=== PATIENT | female | born 1960 | race Caucasian/White ===

== ENCOUNTER 2017-05-18 11:36 | Observation (INO) | payer BC, SELFPAY ==
[2017-05-18] VITALS (11 sets, daily range): BP systolic 135–166; BP diastolic 68–90; PULSE 61–90; RESP 10–18; TEMP 36.4–37.1; O2SAT 96–100; BMI 42.7; BMI 42.4
--- NOTE | 2017-05-18 11:51 | NURSING ---
NO OLD EKGS
--- NOTE | 2017-05-18 11:52 | RAD_ITS ---
STUDY: X-RAY CHEST REASON FOR EXAM: Female, 56 years old. Chest pain TECHNIQUE: Single frontal view of the chest. COMPARISON: None. FINDINGS: The lungs are clear and expanded. There is no demonstrated pleural abnormality. Normal size heart. Normal mediastinum and alicja. Normal visualized pulmonary arteries. Normal visualized aortic arch and descending thoracic aorta. Normal visualized thoracic spine. Remote deformity of the left humerus. There is no demonstrated abnormality of the visualized soft tissue structures of the upper abdomen. RAD/Chest 1 View (Portable) IMPRESSION: No acute pulmonary findings. Electronically Signed: Chevy Segundo MD at 12:16 EDT Tel , Service support ,
--- NOTE | 2017-05-18 11:52 | EKG12_ITS ---
Test Reason : CP Blood Pressure : / mmHG Vent. Rate : 076 BPM Atrial Rate : 076 BPM P-R Int : 168 ms QRS Dur : 090 ms QT Int : 374 ms P-R-T Axes : 046 040 048 degrees QTc Int : 420 ms Normal sinus rhythm Normal ECG Confirmed by YOGESH NASCIMENTO MD ([id number]), city editor RADHA LANDERS ([id number] on 05/21/2017 1:16:46 PM Referred By: CARMEN
[2017-05-18] MEDS: Aspirin 81 MG TAB.CHEW 324 MG PO (11:55)
--- NOTE | 2017-05-18 11:56 | ED.DCSUM_ITS ---
- ER Visit Summary Date of Service: 05/18/17 Chief Complaint: Shortness of breath, upper back pain, leg swelling History of Present Illness: The patient is a 56 F with no significant medical history except for prior right lower extremity DVT in 2007 presents to the emergency department multiple complaints. Patient states over the past 2 weeks , she has had some gradually worsening shortness of breath. She states that it seems to be worse when she exerts herself. She normally sleeps with 2 pillows, but does not notice it worse when she lays flat. She denies any fevers. She has had some nausea. Over the past few days, the pain is gotten worse mostly in her upper back. She also has some pain when she takes a deep breath. She has had scant cough with no sputum. She denies any fevers or chills. The patient does have a history of smoking, but has quit about a year ago. She denies any weight loss. She denies any night sweats. She has no history of coronary vascular disease. Physical Examination: Vital signs reviewed General: Well-nourished, well-developed Head: Normocephalic, atraumatic Eyes: Pupils equal and reactive, extraocular muscles intact Neck, supple, no lymphadenopathy Heart: Regular rate and rhythm Respiratory: No distress, diminished in the bases Abdomen: Soft, nontender, nondistended, no peritoneal signs Back: Nontender Extremities: Nontender, 2+ symmetric lower extremity edema, no cords Skin: Normal color no rash Neuro: Alert and oriented, no focal or lateralizing deficits Test Results: [] Emergency Department Course and Treatment: Patient has been having intermittent chest tightness, upper back pain, and dyspnea. She also has asymmetric leg swelling. Her initial EKG shows no evidence of acute ischemic change. Chest x- ray is also unremarkable. Labs including troponin and BNP are unremarkable. With her history of prior DVT, I did obtain a CTA of her chest through her abdomen with her asymmetric leg swelling. This is negative. There is no pulmonary embolus. There is no aortic dissection. Ultrasound of the lower extremity shows no acute DVT. My concern is that this may be a cardiac equivalent given the patient's age and risk factor. She has tightness in her upper back, dyspnea, and intermittent chest tightness. I do feel that she would benefit from observation with cardiac rule out. Patient was discussed with the hospitalist. Treatment Plan: [] Disposition: Admission Impression: 1. Exertional dyspnea 2. Chest pain This note was generated with [employer] dictation software. It may contain incorrect words, spelling, and punctuation that were not noted in review of the chart prior to signing ED Disposition - Plan for ED Patient: Chief Complaint: Shortness of Breath Referrals: Chana Mckeon MD [Primary Care Provider] -
--- NOTE | 2017-05-18 11:59 | CT_ITS ---
STUDY: CTA CHEST REASON FOR EXAM: Female, 56 years old. Back pain and right leg swelling RADIATION DOSAGE (If Supplied By Facility): CTDIvol = ( 16.76 ) mGy, DLP = ( 1081.65 ) mGycm TECHNIQUE: The examination was performed with the intravenous administration of 100 ml of Isovue 370 contrast material. Post-processing of the angiographic images was performed, with multiplanar reformation and 3D reconstruction. Individualized dose optimization techniques were used for this CT. COMPARISON: None. FINDINGS: Normal enhancement of the main pulmonary artery and right and left pulmonary arteries. Normal enhancement of the bilateral peripheral pulmonary arteries. There is no demonstrated pulmonary embolism. Mild aortic plaque. There is no demonstrated aortic dissection. Normal heart and pericardium. Normal mediastinum. Normal hilar regions. Normal visualized trachea and bronchi. The lungs are well expanded. Normal pulmonary parenchyma. Normal pleura. Normal chest wall structures. There are degenerative changes of thoracic spine. Normal visualized upper abdomen. CT/CTA Chest W/WO Contrast IMPRESSION: Normal CTA chest examination, without a demonstrated pulmonary embolism or arterial dissection. Electronically Signed: Chevy Segundo MD at 13:07 EDT Tel , Service support ,
[2017-05-18 12:04] LABS: Absolute Lymphocyte Count 2.06 X10^3/ul (0.83-4.51); Absolute Neutrophil Count 2.9 X10^3/uL (2.0-7.7); Basophil# 0.01 X10^3/uL; Basophil% 0.2 % (0-1); Eosinophil# 0.13 X10^3/uL; Eosinophils% 2.4 % (0-5); Hematocrit 40.8 % (37-47); Hemoglobin 13.5 g/dl (12.0-15.0); Lymphocyte # 2.06 X10^3/ul (4.0); Lymphocyte % 37.3 % (19-41); Mean Corp Hgb Conc 33.1 g/gl (32-36); Mean Corpuscular Hgb 29.3 pg (27.0-32.0); Mean Corpuscular Volume 88.5 fL (81-99); Monocyte# 0.41 X10^3/uL; Monocyte% 7.4 % (0-10); Neutrophil # 2.89 X10^3/uL (2.7-7.7); Neutrophil % 52.3 % (47-70); POSITIVE COUNT NO; POSITIVE DIFFERENTIAL NO; POSITIVE MORPHOLOGY NO; Platelet Count 165 K/mm3 (150-450); RBC Distribution Width CV 13.8 % (11.6-14.6); RBC Distribution Width SD 44.3 fl (35.1-43.9); Red Blood Count 4.61 M/mm3 (4.2-5.4); White Blood Count 5.5 K/mm3 (4.4-11.0)
[2017-05-18 12:08] LABS: Prothrombin Time (Protime)PT. 12.7 SECONDS (11.7-14.9)
[2017-05-18 12:18] LABS: Anion Gap 7 (5-15); BUN 13 mg/dL (7-18); BUN/Creat Ratio 17.6 RATIO (10-20); Calcium,Total 8.4 mg/dL (8.5-10.1); Chloride 108 mmol/L (98-107); Creatinine, Serum 0.74 mg/dL (0.55-1.02); EST Glomerular Filtration Rate 87 mL/min (>60); Est Glom Filt Rate - Afr Amer 105 mL/min (>60); Estimated Creatinine Clearance 75.05 ml/min; Glucose 83 mg/dL (74-106); Potassium 3.8 mmol/L (3.5-5.1); Sodium Level 141 mmol/L (136-145)
--- NOTE | 2017-05-18 12:26 | CT_ITS ---
CT ANGIOGRAM OF THE ABDOMEN WITH CONTRAST HISTORY: Back pain and leg swelling COMPARISON: Technique: Axial CT angiogram images of the abdomen were performed after IV contrast administration followed by sagittal and coronal reconstructions. 3-D postprocessing was performed. FINDINGS: No abdominal aortic aneurysm or flow limiting aortic stenosis. No aortic dissection is seen. Mild eccentric calcified aortic plaque. The visible portions of the iliac arteries are patent. The abdominal aortic branch vessels are patent. Degenerative lumbar changes. Hepatomegaly, with liver length of 20 cm. Borderline splenomegaly with spleen length 13 cm. Kidneys, adrenal glands, pancreas, and gallbladder are unremarkable. Small umbilical fat hernia. Appendix is normal. Colonic diverticulosis. IVC and retroperitoneum are intact. CT/CTA Abdomen W/WO Contrast IMPRESSION: No CTA evidence of acute arterial pathology in the abdomen or pelvis. Electronically Signed: Chevy Segundo MD at 13:05 EDT Tel , Service support ,
[2017-05-18 12:36] LABS: BNP,B-Type NATRIURETIC PEPTIDE 76.1 pg/mL (0-100)
--- NOTE | 2017-05-18 13:09 | VDLE_ITS ---
Reason For Study: LEG SWELLING RIGHT GSV is normal. CFV is compressible, spontaneous, phasic, competent and demonstrates normal augmentation. Pt could not tolerate FV compressions. Normal color flow and doppler signal and competent with augmentation. POP V is compressible, spontaneous, phasic, competent and demonstrates normal augmentation. T/P Trunk is compressible. PTV is compressible. Procedure Exam performed portable in ED. A preliminary report was called and/or faxed to Dr. Yao. Interpretation Summary Deep veins of the right lower extremity are patent. There is no evidence of right lower extremity deep vein thrombosis. Valvular competence appears intact within the proximal deep venous system on the right . The right greater saphenous vein appears patent and compressible segmentally. Ordering Physician: Silvio Yao Referring Physician: Chana Mckeon M.D. Performed By: Chayo Ordonez RVT
--- NOTE | 2017-05-18 13:57 | NURSING ---
PCU OBS DOROTEO WOODARD
--- NOTE | 2017-05-18 14:06 | PCM.HP.STD ---
History of Present Illness Date of Admission: 05/18/17 Chief Complaint: Shortness of breath, chest pain, upper back pain and leg swelling. The patient is a 56 year old F with no significant past medical history presented to the emergency room because of multiple complaints. I tried to find what was the most significant symptom that patient came for today and she mentioned it is the chest pain. She mentioned that she has been having this chest pain for the last week, intermittent pain, central in location, squeezing pain, 6 out of 10 in severity, associated with shortness of breath, sometimes radiates to her both shoulders and upper back and without relieving or aggravating factors. Also, she complains of multiple body pains and aches. She complained of right leg swelling. She complains of bilateral hand numbness that has been going on for some time. In the emergency room, her blood pressure was slightly elevated, other vital signs were stable. Her routine blood work was unremarkable. Her lipase and BMP was normal. Chest x-ray showed no acute infiltrate, consultation or effusion. CTA chest showed no evidence of PE or dissection, no pneumonia. CT abdomen and pelvis showed no evidence of acute arterial pathology. She is being admitted for atypical chest pain for evaluation. 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 Paternal History Items: No pertinent history - She is adopted. Review of Systems Constitutional: Denies: Anorexia, Chills, Fever, Weakness Eyes: Denies: Blurred vision, Double vision, Drainage, Redness HEENT: Denies: Difficulty Hearing, Ear Pain, Eye Pain, Nasal Congestion, Sore Throat Cardiovascular: Reports: Chest Pain. Denies: Edema, Heaviness, Light Headedness, Orthopnea, Palpitations, Paroxysmal Noc. Dyspnea, Syncope Respiratory: Reports: Shortness of Breath. Denies: Cough, Pleuritic Pain, Sputum production, Wheezing Gastrointestinal: Reports: Nausea. Denies: Abdominal Pain, Constipation, Diarrhea, Vomiting Genitourinary: Denies: Dysuria, Frequency, Hematuria Musculoskeletal: Reports: Back Pain. Denies: Arm Pain, Foot Pain Skin: Denies: Dryness, Rash Neurological: Reports: Numbness. Denies: Balance problems, Double vision, Change in Speech, Slurred speech, Confusion, Focal weakness, Headaches, Incoordination Psychiatric: Denies: Anxiety, Depression Endocrine: Denies: Change in Body Habitus, Polydipsia VTE Information - Inpt Only VTE Present on Admission: No VTE Mechan Device Prophylaxis: None VTE Pharm Prophylaxis ordered?: No - Physical Exam General: Alert, Oriented x3, Cooperative, No apparent distress HEENT: Atraumatic, PERRLA, EOMI Oral: Moist Mucosa, No Gingival or Mucosal Lesions/ Ulcerations Neck: Supple, No JVD, Negative Carotid Bruits, Trachea Midline, Thyroid Normal Size and Texture Cardiovascular: Regular rate, Regular Rhythm, Normal S1, Normal S2, No murmurs, PMI Normal Abdomen: Bowel Sounds Present, Soft, Non Tender, Non-Distended, No Hepato-splenomegaly Extremities: No clubbing, No cyanosis, No edema Skin: No rashes, No breakdown Lymphatic: No Cervical, Supraclavicular, or Inguinal Adenopathy Neurological: Cranial nerves II-XII grossly intact, Motor Exam 5/5 strength throughout Psych/Mental Status: Normal Affect, Appropriate, Alert and oriented to time, place, person, mood and affect Vital Signs Temp Pulse Resp BP Pulse Ox 98.7 F 65 11 L 166/86 H 100 05/18/17 11:38 05/18/17 12:56 05/18/17 12:56 05/18/17 12:56 05/18/17 12:56 Oxygen Flow Rate (L/min) 2 Oxygen Delivery Method Room Air Weight: 249 lb Body Mass Index (BMI) 42.7 Laboratory Tests Past 24 Hrs 05/18/17 05/18/17 05/18/17 11:55 11:55 11:55 WBC 5.5 RBC 4.61 Hgb 13.5 Hct 40.8 MCV 88.5 MCH 29.3 MCHC 33.1 RDW 13.8 RDW Differential 44.3 H Plt Count 165 MPV 11.0 Immature Gran % (Auto) 0.400 Neut % (Auto) 52.3 Lymph % (Auto) 37.3 [place] % (Auto) 7.4 Eos % (Auto) 2.4 Baso % (Auto) 0.2 Absolute Neuts (auto) 2.9 Absolute Lymphs (auto) 2.06 Total Counted Not Reportable PT 12.7 INR 1.0 Sodium 141 Potassium 3.8 Chloride 108 H Carbon Dioxide 26.0 Anion Gap 7 BUN 13 Creatinine 0.74 Estim Creat Clear Calc 75.05 Est GFR (MDRD) Af Amer 105 Est GFR (MDRD) Non-Af 87 BUN/Creatinine Ratio 17.6 Glucose 83 Calcium 8.4 L Troponin I < 0.02 B-Natriuretic Peptide 05/18/17 11:55 WBC RBC Hgb Hct MCV MCH MCHC RDW RDW Differential Plt Count MPV Immature Gran % (Auto) Neut % (Auto) Lymph % (Auto) [place] % (Auto) Eos % (Auto) Baso % (Auto) Absolute Neuts (auto) Absolute Lymphs (auto) Total Counted PT INR Sodium Potassium Chloride Carbon Dioxide Anion Gap BUN Creatinine Estim Creat Clear Calc Est GFR (MDRD) Af Amer Est GFR (MDRD) Non-Af BUN/Creatinine Ratio Glucose Calcium Troponin I B-Natriuretic Peptide 76.1 Clinical Impression(s) from Imaging Studies Chest X-Ray 05/18/17 11:52 IMPRESSION: No acute pulmonary findings. Electronically Signed: Chevy Segundo MD at 12:16 EDT Tel , Service support , Chest CTA 05/18/17 11:59 IMPRESSION: Normal CTA chest examination, without a demonstrated pulmonary embolism or arterial dissection. Electronically Signed: Chevy Segundo MD at 13:07 EDT Tel , Service support , Abdomen CTA 05/18/17 12:26 IMPRESSION: No CTA evidence of acute arterial pathology in the abdomen or pelvis. Electronically Signed: Chevy Segundo MD at 13:05 EDT Tel , Service support , Assessment/Plan This is a 56 years old female patient presented to the medicine because of multiple complaints including atypical chest pain, shortness of breath, upper back pain and leg swelling that she is being admitted for atypical chest pain for evaluation. #1 atypical chest pain: Risk factors are smoking and obesity. No family history of premature CAD, patient is adopted. She has no personal history of diabetes, hypertension, hyperlipidemia. EKG was unremarkable, no acute ischemic changes. Chest x-ray and CTA chest was unremarkable. Plan: Admit to PCU for observation, cardiac monitoring, serial cardiac enzymes, repeat EKG tomorrow morning, start baby aspirin, fasting lipid profile, nuclear stress test tomorrow morning if cardiac enzymes are negative. #2 leg swelling: Both legs are swollen, nonpitting edema because of obesity. No clinical evidence of DVT. #3 elevated blood pressure: Blood pressure was slightly elevated in the ER, maximum was 166/86. She has no history of hypertension. Plan for close monitoring, may need to start on antihypertensive medication before discharge #4 history of DVT: Remote history, status post IVC. No clinical evidence of DVT of both legs at this time. #5 DVT prophylaxis: Subcu Lovenox. This note was generated with [employer] dictation software. It may contain incorrect words, spelling, and punctuation that were not noted in checking the note before signing. Code Visit OBSV E&M: 16699 Initial observation care L3
--- NOTE | 2017-05-18 14:14 | HP.PCM_ITS ---
History of Present Illness Date of Admission: 05/18/17 Chief Complaint: Shortness of breath, chest pain, upper back pain and leg swelling. The patient is a 56 year old F with no significant past medical history presented to the emergency room because of multiple complaints. I tried to find what was the most significant symptom that patient came for today and she mentioned it is the chest pain. She mentioned that she has been having this chest pain for the last week, intermittent pain, central in location, squeezing pain, 6 out of 10 in severity, associated with shortness of breath, sometimes radiates to her both shoulders and upper back and without relieving or aggravating factors. Also, she complains of multiple body pains and aches. She complained of right leg swelling. She complains of bilateral hand numbness that has been going on for some time. In the emergency room, her blood pressure was slightly elevated, other vital signs were stable. Her routine blood work was unremarkable. Her lipase and BMP was normal. Chest x-ray showed no acute infiltrate, consultation or effusion. CTA chest showed no evidence of PE or dissection, no pneumonia. CT abdomen and pelvis showed no evidence of acute arterial pathology. She is being admitted for atypical chest pain for evaluation. 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 Paternal History Items: No pertinent history - She is adopted. Review of Systems Constitutional: Denies: Anorexia, Chills, Fever, Weakness Eyes: Denies: Blurred vision, Double vision, Drainage, Redness HEENT: Denies: Difficulty Hearing, Ear Pain, Eye Pain, Nasal Congestion, Sore Throat Cardiovascular: Reports: Chest Pain. Denies: Edema, Heaviness, Light Headedness , Orthopnea, Palpitations, Paroxysmal Noc. Dyspnea, Syncope Respiratory: Reports: Shortness of Breath. Denies: Cough, Pleuritic Pain, Sputum production, Wheezing Gastrointestinal: Reports: Nausea. Denies: Abdominal Pain, Constipation, Diarrhea, Vomiting Genitourinary: Denies: Dysuria, Frequency, Hematuria Musculoskeletal: Reports: Back Pain. Denies: Arm Pain, Foot Pain Skin: Denies: Dryness, Rash Neurological: Reports: Numbness. Denies: Balance problems, Double vision, Change in Speech, Slurred speech, Confusion, Focal weakness, Headaches, Incoordination Psychiatric: Denies: Anxiety, Depression Endocrine: Denies: Change in Body Habitus, Polydipsia VTE Information - Inpt Only VTE Present on Admission: No VTE Mechan Device Prophylaxis: None VTE Pharm Prophylaxis ordered?: No - Physical Exam General: Alert, Oriented x3, Cooperative, No apparent distress HEENT: Atraumatic, PERRLA, EOMI Oral: Moist Mucosa, No Gingival or Mucosal Lesions/ Ulcerations Neck: Supple, No JVD, Negative Carotid Bruits, Trachea Midline, Thyroid Normal Size and Texture Cardiovascular: Regular rate, Regular Rhythm, Normal S1, Normal S2, No murmurs, PMI Normal Abdomen: Bowel Sounds Present, Soft, Non Tender, Non-Distended, No Hepato- splenomegaly Extremities: No clubbing, No cyanosis, No edema Skin: No rashes, No breakdown Lymphatic: No Cervical, Supraclavicular, or Inguinal Adenopathy Neurological: Cranial nerves II-XII grossly intact, Motor Exam 5/5 strength throughout Psych/Mental Status: Normal Affect, Appropriate, Alert and oriented to time, place, person, mood and affect Vital Signs Temp Pulse Resp BP Pulse Ox 98.7 F 65 11 L 166/86 H 100 05/18/17 11:38 05/18/17 12:56 05/18/17 12:56 05/18/17 12:56 05/18/17 12:56 Oxygen Flow Rate (L/min) 2 Oxygen Delivery Method Room Air Weight: 249 lb Body Mass Index (BMI) 42.7 Laboratory Tests Past 24 Hrs 05/18/17 05/18/17 05/18/17 11:55 11:55 11:55 WBC 5.5 RBC 4.61 Hgb 13.5 Hct 40.8 MCV 88.5 MCH 29.3 MCHC 33.1 RDW 13.8 RDW Differential 44.3 H Plt Count 165 MPV 11.0 Immature Gran % (Auto) 0.400 Neut % (Auto) 52.3 Lymph % (Auto) 37.3 [place] % (Auto) 7.4 Eos % (Auto) 2.4 Baso % (Auto) 0.2 Absolute Neuts (auto) 2.9 Absolute Lymphs (auto) 2.06 Total Counted Not Reportable PT 12.7 INR 1.0 Sodium 141 Potassium 3.8 Chloride 108 H Carbon Dioxide 26.0 Anion Gap 7 BUN 13 Creatinine 0.74 Estim Creat Clear Calc 75.05 Est GFR (MDRD) Af Amer 105 Est GFR (MDRD) Non-Af 87 BUN/Creatinine Ratio 17.6 Glucose 83 Calcium 8.4 L Troponin I < 0.02 B-Natriuretic Peptide 05/18/17 11:55 WBC RBC Hgb Hct MCV MCH MCHC RDW RDW Differential Plt Count MPV Immature Gran % (Auto) Neut % (Auto) Lymph % (Auto) [place] % (Auto) Eos % (Auto) Baso % (Auto) Absolute Neuts (auto) Absolute Lymphs (auto) Total Counted PT INR Sodium Potassium Chloride Carbon Dioxide Anion Gap BUN Creatinine Estim Creat Clear Calc Est GFR (MDRD) Af Amer Est GFR (MDRD) Non-Af BUN/Creatinine Ratio Glucose Calcium Troponin I B-Natriuretic Peptide 76.1 Clinical Impression(s) from Imaging Studies Chest X-Ray 05/18/17 11:52 IMPRESSION: No acute pulmonary findings. Electronically Signed: Chevy Segundo MD at 12:16 EDT Tel , Service support , Chest CTA 05/18/17 11:59 IMPRESSION: Normal CTA chest examination, without a demonstrated pulmonary embolism or arterial dissection. Electronically Signed: Chevy Segundo MD at 13:07 EDT Tel , Service support , Abdomen CTA 05/18/17 12:26 IMPRESSION: No CTA evidence of acute arterial pathology in the abdomen or pelvis. Electronically Signed: Chevy Segundo MD at 13:05 EDT Tel , Service support , Assessment/Plan This is a 56 years old female patient presented to the medicine because of multiple complaints including atypical chest pain, shortness of breath, upper back pain and leg swelling that she is being admitted for atypical chest pain for evaluation. #1 atypical chest pain: Risk factors are smoking and obesity. No family history of premature CAD, patient is adopted. She has no personal history of diabetes, hypertension, hyperlipidemia. EKG was unremarkable, no acute ischemic changes. Chest x-ray and CTA chest was unremarkable. Plan: Admit to PCU for observation, cardiac monitoring, serial cardiac enzymes, repeat EKG tomorrow morning, start baby aspirin, fasting lipid profile, nuclear stress test tomorrow morning if cardiac enzymes are negative. #2 leg swelling: Both legs are swollen, nonpitting edema because of obesity. No clinical evidence of DVT. #3 elevated blood pressure: Blood pressure was slightly elevated in the ER, maximum was 166/86. She has no history of hypertension. Plan for close monitoring, may need to start on antihypertensive medication before discharge #4 history of DVT: Remote history, status post IVC. No clinical evidence of DVT of both legs at this time. #5 DVT prophylaxis: Subcu Lovenox. This note was generated with [employer] dictation software. It may contain incorrect words, spelling, and punctuation that were not noted in checking the note before signing. Code Visit OBSV E&M: 81802 Initial observation care L3
--- NOTE | 2017-05-18 16:58 | EKG12_ITS ---
Test Reason : CP Blood Pressure : / mmHG Vent. Rate : 073 BPM Atrial Rate : 073 BPM P-R Int : 176 ms QRS Dur : 090 ms QT Int : 386 ms P-R-T Axes : 040 038 048 degrees QTc Int : 425 ms Normal sinus rhythm Normal ECG When compared with ECG of 18-MAY-2017 11:47, MANUAL COMPARISON REQUIRED, DATA IS UNCONFIRMED Confirmed by AZAM CAMPBELL, YOGESH ([id number]), editor & co founder RADHA LANDERS ([id number]) on 05/21/2017 1:46:37 PM Referred By: VANCE Confirmed By:YOGESH NASCIMENTO MD
[2017-05-18] MEDS: 0.9% NaCl Peripheral Flush Adult/Peds IV (22:08)
[2017-05-18] MEDS: Acetaminophen 325 MG Tablet 650 MG PO (22:11)
[2017-05-19] VITALS (7 sets, daily range): BP systolic 137–152; BP diastolic 71–84; PULSE 57–76; RESP 16–18; TEMP 36.4–36.6; O2SAT 96–99
[2017-05-19 02:37] LABS: Absolute Lymphocyte Count 2.06 X10^3/ul (0.83-4.51); Absolute Neutrophil Count 2.1 X10^3/uL (2.0-7.7); Basophil# 0.02 X10^3/uL; Basophil% 0.4 % (0-1); Eosinophil# 0.09 X10^3/uL; Hematocrit 37.7 % (37-47); Hemoglobin 12.5 g/dl (12.0-15.0); Lymphocyte # 2.06 X10^3/ul (4.0); Lymphocyte % 44.8 % (19-41); Mean Corp Hgb Conc 33.2 g/gl (32-36); Mean Corpuscular Hgb 29.8 pg (27.0-32.0); Mean Platelet Vol. 10.8 fl (6.2-12.0); Monocyte# 0.32 X10^3/uL; Neutrophil % 45.6 % (47-70); POSITIVE COUNT NO; POSITIVE DIFFERENTIAL NO; POSITIVE MORPHOLOGY NO; Platelet Count 134 K/mm3 (150-450); RBC Distribution Width CV 13.7 % (11.6-14.6); RBC Distribution Width SD 44.6 fl (35.1-43.9); Red Blood Count 4.19 M/mm3 (4.2-5.4); White Blood Count 4.6 K/mm3 (4.4-11.0)
[2017-05-19 03:15] LABS: Anion Gap 7 (5-15); BUN 14 mg/dL (7-18); BUN/Creat Ratio 18.3 RATIO (10-20); Calcium,Total 8.2 mg/dL (8.5-10.1); Chloride 108 mmol/L (98-107); Cholesterol 185 mg/dL (200); Creatinine, Serum 0.76 mg/dL (0.55-1.02); EST Glomerular Filtration Rate 84 mL/min (>60); Est Glom Filt Rate - Afr Amer 101 mL/min (>60); Estimated Creatinine Clearance 73.07 ml/min; Glucose 91 mg/dL (74-106); High Density Lipoprotein 73 mg/dL; Sodium Level 143 mmol/L (136-145); Triglycerides 86 mg/dL; Very Low Density Lipoprotein 17 mg/dL (5-40)
[2017-05-19 04:56] LABS: Prothrombin Time (Protime)PT. 13.2 SECONDS (11.7-14.9)
[2017-05-19 04:57] LABS: Partial Thromboplast Time 24.9 Seconds (24.1-36.2)
[2017-05-19] MEDS: Aspirin 81 MG TAB.CHEW PO (05:44)
--- NOTE | 2017-05-19 05:55 | EKG12_ITS ---
Test Reason : AM EKG Blood Pressure : / mmHG Vent. Rate : 060 BPM Atrial Rate : 060 BPM P-R Int : 180 ms QRS Dur : 090 ms QT Int : 406 ms P-R-T Axes : 065 066 064 degrees QTc Int : 406 ms Normal sinus rhythm Normal ECG When compared with ECG of 18-MAY-2017 17:02, MANUAL COMPARISON REQUIRED, DATA IS UNCONFIRMED Confirmed by AZAM CAMPBELL, YOGESH ([id number]), assignment editor RADHA LANDERS ([id number]) on 05/21/2017 1:37:11 PM Referred By: DR WOODARD Confirmed By:YOGESH NASCIMENTO MD
--- NOTE | 2017-05-19 09:12 | STRESSREP_ITS ---
Stress Test Report Pharmacologic myocardial perfusion stress test. 56-year-old lady with a history of chest pain. Stress protocol: Resting EKG demonstrates sinus rhythm with a rate of 63 bpm. Normal intervals and noted resting blood pressures 142/90 mmHg. 0.4 mg of regadenoson was infused per usual protocol followed by rapid intravenous saline flush injection. Continuous EKG monitoring was performed. At rest there were no ST or T-wave changes noted suggest abnormal flow reserve at peak infusion no ST or T-wave changes were noted suggest abnormal flow reserve. The maximum heart rate attained was 99 bpm which was 59% maximum predicted heart rate the maximum workload attained was 1 metabolic equivalent. The resting blood pressure is 142 /90 mmHg final blood pressure 138/82 mmHg. Myocardial perfusion protocol: 14.7 mCi of technetium 99m sestamibi was injected at rest. 0.4 mg regadenoson was infused per usual protocol. Peak infusion 44.4 mCi of technetium 99m sestamibi was injected. Stress images were obtained stress and rest images were reconstructed and compared in the short axis vertical long and horizontal long axis. Gated images were also obtained. Perfusion SPECT analysis: Review of the stress images demonstrate normal uptake of tracer noted in all areas of the myocardium on the stress images the resting images similarly demonstrate normal uptake of tracer noted in all areas of the myocardium. No areas of reversibility are noted suggest ischemia. Gated SPECT analysis: The gated ejection fraction is noted to be 60%. Conclusion: Normal pharmacologic myocardial perfusion stress test. Preserved ejection fraction.
[2017-05-19] MEDS: Acetaminophen 325 MG Tablet 650 MG PO (10:25)
[2017-05-19] MEDS: Lisinopril 5 MG Tablet PO (11:14)
[2017-05-19] MEDS: Ondansetron 4 MG/2 ML Vial IV (11:18)
[2017-05-19] MEDS: 0.9% NaCl Peripheral Flush Adult/Peds IV (11:19)
--- NOTE | 2017-05-19 11:35 | PCM.DC ---
You will use the following diet at home:: Cardiac - <2g sodium per day Your food should be the consistency of: Regular Your liquids should be the consistency of: Regular/Thin Discharge Activity: Return to Normal Activity Allergies/Adverse Reactions: Allergies diphenhydramine [From Benadryl] Adverse Reaction (Verified 05/18/17 14:06) irritable IRRITABLE Medications to take at Discharge Lisinopril [Zestril] 5 mg PO DAILY #30 tab 05/19/17 The following prescriptions were given: Lisinopril [Zestril] 5 mg PO DAILY #30 tab Primary Care Physician: Chana Mckeon MD [Primary Care Provider] - Please follow up with your Primary Care Physician in: 1-2 weeks Proposed Discharge Date: 05/19/17
--- NOTE | 2017-05-19 15:45 | PCM.DC.SUM ---
<Gonzalo Slater - Last Filed: 05/19/17 15:45> Discharge Date and Diagnosis Date of Admission: 05/18/17 Date of Discharge: 05/19/17 - Primary Discharge Diagnosis Chest pain - musculoskeletal HTN Obesity Former smoker Remote hx DVT Hospital Course and Treatment Imaging Results: RAD/Chest 1 View (Portable) IMPRESSION: No acute pulmonary findings. CT/CTA Chest W/WO Contrast IMPRESSION: Normal CTA chest examination, without a demonstrated pulmonary embolism or arterial dissection. CT/CTA Abdomen W/WO Contrast IMPRESSION: No CTA evidence of acute arterial pathology in the abdomen or pelvis. Duplex venous US RLE: Interpretation Summary Deep veins of the right lower extremity are patent. There is no evidence of right lower extremity deep vein thrombosis. Valvular competence appears intact within the proximal deep venous system on the right . The right greater saphenous vein appears patent and compressible segmentally. Stres test: Conclusion: Normal pharmacologic myocardial perfusion stress test. Preserved ejection fraction. Operations: None Procedures: Stress test Summary of Care Provided: Physical exam on day of discharge: General: Resting comfortably NAD Psych: A/Ox3 normal affect HEENT: PEARRLA AT NC Neck: Supple NT CV: RRR no m/t/r/g/h Resp: CTA Abd: [id number] Soft NT no guarding or rigidity, obesity Ext: DP2+= no edema, varicose veins, nonpitting puffy edema bilateral lower extremities. Skin: W/D normal turgor Lymph/Heme: No active bleeding or adenopathy Neuro: CN2-12 intact Hospital course: The patient is a 56 year old F with on no medications, with a hx of prior smoker, prior DVT, obesity who presented to the ER complaining of 6 out of 10 squeezing chest pain associated with shortness of breath radiating to her shoulders and upper back with no relieving or aggravating factors. She also complained of right lower extremity swelling, bilateral hand numbness. In the ER she had negative troponin, negative EKG, CTA of the abdomen and chest which were negative, and an ultrasound of the right lower extremity which was negative for DVTs. She was admitted to the hospital for chest pain workup. She had negative troponin ?3, no events on telemetry, and underwent a stress test the following day with no acute events. Her blood pressure was poorly controlled throughout the stay so she was started on lisinopril. LDL was 95, total cholesterol 185. She remained in stable condition and had no further chest pain. He was felt that her chest pain was musculoskeletal in origin and she was advised to follow-up with her PCP for further care. She is discharged home in stable condition This patient was seen by Gonzalo Slater PA-C under the supervision of Doctor Hi. [] Discharge Diet: Low fat/ Low Cholesterol, 2000 mg Sodium Diet Discharge Activity: Return to Normal Activity Home Medications: Medications to take at Discharge Lisinopril [Zestril] 5 mg PO DAILY #30 tab 05/19/17 Following Prescrptions Were Given to Patient: Lisinopril [Zestril] 5 mg PO DAILY #30 tab Primary Care Physician: Chana Mckeon MD [Primary Care Provider] - Please follow up with your Primary Care Physician in: 1-2 weeks Disposition: Home Minutes spent on discharge:: 35 Patient Condition:: Stable Meaningful Use Info Meaningful Use Diagnoses (Choose all that apply): None applicable <Allen Do - Last Filed: 05/19/17 19:05> Hospital Course and Treatment Summary of Care Provided: This patient was seen in conjunction with Gonzalo GILLILAND. I have independently interviewed and examined the patient and reviewed pertinent history, examination findings, laboratory and plan of management. I have reviewed the note and agree with the documented findings with the few additional points. In brief, patient is admitted for chest pain. Stress test did not show acute stress-induced ischemia. Patient is discharged home. I have discussed my assessment with Gonzalo GILLILAND and orders have been reviewed. [] Code Visit OBSV E&M: 96181 Observation care discharge
--- NOTE | 2017-05-19 15:52 | DS.PCM_ITS ---
<Gonzalo Slater - Last Filed: 05/19/17 15:45> Discharge Date and Diagnosis Date of Admission: 05/18/17 Date of Discharge: 05/19/17 - Primary Discharge Diagnosis Chest pain - musculoskeletal HTN Obesity Former smoker Remote hx DVT Hospital Course and Treatment Imaging Results: RAD/Chest 1 View (Portable) IMPRESSION: No acute pulmonary findings. CT/CTA Chest W/WO Contrast IMPRESSION: Normal CTA chest examination, without a demonstrated pulmonary embolism or arterial dissection. CT/CTA Abdomen W/WO Contrast IMPRESSION: No CTA evidence of acute arterial pathology in the abdomen or pelvis. Duplex venous US RLE: Interpretation Summary Deep veins of the right lower extremity are patent. There is no evidence of right lower extremity deep vein thrombosis. Valvular competence appears intact within the proximal deep venous system on the right . The right greater saphenous vein appears patent and compressible segmentally. Stres test: Conclusion: Normal pharmacologic myocardial perfusion stress test. Preserved ejection fraction. Operations: None Procedures: Stress test Summary of Care Provided: Physical exam on day of discharge: General: Resting comfortably NAD Psych: A/Ox3 normal affect HEENT: PEARRLA AT NC Neck: Supple NT CV: RRR no m/t/r/g/h Resp: CTA Abd: [id number] Soft NT no guarding or rigidity, obesity Ext: DP2+= no edema, varicose veins, nonpitting puffy edema bilateral lower extremities. Skin: W/D normal turgor Lymph/Heme: No active bleeding or adenopathy Neuro: CN2-12 intact Hospital course: The patient is a 56 year old F with on no medications, with a hx of prior smoker , prior DVT, obesity who presented to the ER complaining of 6 out of 10 squeezing chest pain associated with shortness of breath radiating to her shoulders and upper back with no relieving or aggravating factors. She also complained of right lower extremity swelling, bilateral hand numbness. In the ER she had negative troponin, negative EKG, CTA of the abdomen and chest which were negative, and an ultrasound of the right lower extremity which was negative for DVTs. She was admitted to the hospital for chest pain workup. She had negative troponin ?3, no events on telemetry, and underwent a stress test the following day with no acute events. Her blood pressure was poorly controlled throughout the stay so she was started on lisinopril. LDL was 95, total cholesterol 185. She remained in stable condition and had no further chest pain. He was felt that her chest pain was musculoskeletal in origin and she was advised to follow-up with her PCP for further care. She is discharged home in stable condition This patient was seen by Gonzalo Slater PA-C under the supervision of Doctor Hi. [] Discharge Diet: Low fat/ Low Cholesterol, 2000 mg Sodium Diet Discharge Activity: Return to Normal Activity Home Medications: Medications to take at Discharge Lisinopril [Zestril] 5 mg PO DAILY #30 tab 05/19/17 Following Prescrptions Were Given to Patient: Lisinopril [Zestril] 5 mg PO DAILY #30 tab Primary Care Physician: Chana Mckeon MD [Primary Care Provider] - Please follow up with your Primary Care Physician in: 1-2 weeks Disposition: Home Minutes spent on discharge:: 35 Patient Condition:: Stable Meaningful Use Info Meaningful Use Diagnoses (Choose all that apply): None applicable <Aleln Do - Last Filed: 05/19/17 19:05> Hospital Course and Treatment Summary of Care Provided: This patient was seen in conjunction with Gonzalo GILLILAND. I have independently interviewed and examined the patient and reviewed pertinent history, examination findings, laboratory and plan of management. I have reviewed the note and agree with the documented findings with the few additional points. In brief, patient is admitted for chest pain. Stress test did not show acute stress-induced ischemia. Patient is discharged home. I have discussed my assessment with Gonzalo GILLILAND and orders have been reviewed. [] Code Visit OBSV E&M: 45457 Observation care discharge
== END 2017-05-19 11:35 | disposition home or self-care (01) ==
LOC: ED 12:05 → PCU 14:02
PROVIDERS: Admitting Provider Hospitalist; Emergency Provider Emergency Medicine; Family Provider Family Medicine; PCP Family Medicine; Visit Provider Internal Medicine
DX: R07.89 Other chest pain (principal); I10 Essential (primary) hypertension; Z87.891 Personal history of nicotine dependence; Z86.718 Personal history of other venous thrombosis and embolism; E66.9 Obesity, unspecified; Z68.41 Body mass index [BMI] 40.0-44.9, adult; Z71.3 Dietary counseling and surveillance; M79.89 Other specified soft tissue disorders; R20.0 Anesthesia of skin; R06.02 Shortness of breath
CPT/HCPCS: 36415; 71045; 71275; 74175; 78452; 80048; 80061; 83880; 84484; 85025; 85610; 85730; 93005; 93017; 93971; 96374; 97802; 99218; 99284; A9500; Q9967; A4216; G0378; J2405; J2785

== ENCOUNTER → 2018-12-05 | Outpatient (CLI) | payer BC, SELFPAY ==
[2017-05-18 14:28] VITALS: BMI 42.4
--- NOTE | 2018-12-05 12:15 | RAD_ITS ---
STUDY: X-RAY - LEFT KNEE REASON FOR EXAM: Female, 57 years old. Osteoarthritis TECHNIQUE: 3 view(s) of the knee. COMPARISON: None. FINDINGS: There are severe degenerative changes in the medial weightbearing compartment with joint space loss, subchondral sclerosis and articular marginal osteophyte formation. There is mild degenerative change in the lateral, moderate degenerative change in the patellofemoral compartments. Soft tissues unremarkable without joint effusions. RAD/Knee 4 or More Views IMPRESSION: Severe medial compartment degenerative joint change. Electronically Signed: Beni Perrin, at 19:01 EDT Tel , Service support ,
--- NOTE | 2018-12-05 12:16 | RAD_ITS ---
STUDY: X-RAY - RIGHT KNEE REASON FOR EXAM: Female, 57 years old. Osteoarthritis TECHNIQUE: 3 view(s) of the knee. COMPARISON: None. FINDINGS: The knee is intact and located. There are severe degenerative changes in the medial weightbearing compartment with loss of joint space and subchondral sclerosis. There is mild tricompartmental articular marginal osteophyte formation. Soft tissues are unremarkable without joint effusion. RAD/Knee 4 or More Views IMPRESSION: Severe degenerative change of the medial weightbearing compartment. Electronically Signed: Beni Perrin, at 18:30 EDT Tel , Service support ,
== END | disposition home or self-care (01) ==
LOC: MTRAD 12:12
PROVIDERS: Family Provider Family Medicine; PCP Family Medicine; Referring Provider Family Medicine; Visit Provider Family Medicine
DX: M17.0 Bilateral primary osteoarthritis of knee (principal)
CPT/HCPCS: 73564

== ENCOUNTER 2019-09-04 13:00 | Outpatient (RCR) | payer BC, SELFPAY | END 2019-09-05 23:59 | LOC: NS 13:00 | PROVIDERS: PCP Family Medicine; Visit Provider Specialist | DX: Z71.3 Dietary counseling and surveillance (principal); E66.8 Other obesity; Z68.41 Body mass index [BMI] 40.0-44.9, adult | CPT/HCPCS: 97802; 97803 ==

== ENCOUNTER 2019-09-11 09:00 | Outpatient (RCR) | payer BC, MEDICAID, SELFPAY ==
--- NOTE | 2019-08-16 08:53 | HP.PTEVAL ---
Patient's Visit Information MANINDER SEVERINO is a 58 year old F referred to Physical Therapy by Dr. Morgan Cadena MD with a diagnosis of Bilateral Knee OA. Date of Evaluation: 08/16/19 Physical Therapist: Alisa Terrell DPT - Visit Plan Frequency: 1x/Week Duration: 6 Weeks Plan: Focus on HEP- patient plans to come to PT 1x a week then do HEP due to 20 visit limit with possible TKR. - Subjective Patient reports that she has had knee problems for years- continually getting worse. Saw Dr. Cadena who reports that she needs to get her BMI down to be able to do TKR. Works for [employer]- MD took her off work- Surinder took x-rays and the left knee bone is starting to deteriorate. The left is worse that the right. Pain at its worst is a 20/10 in the left knee and 12/10 in the right knee. Agg: standing, walking, anything up on it. Was taking Ibuprofen when she was working and it took the edge off. She does not want to do narcotics- was given a Tramadol prescription that she takes PRN. Best: 10/10 Eases: laying down- depending on the day. Sleep: side sleeper- wakes her up at night. Does have a lot of swelling her legs right>left- 2007 had blood clot and was in the hospital for 4 days and has struggled with swelling since then. Pain is located along the front of the knees and radiates to the ankle and into the thigh. Does have N/T in bilateral LE which is new in the last few months. Does not have back issues. Her balance is bad due to pain and compensation but she has not had any falls or knee buckling. She uses a rail when doing stairs and she does one step at a time-non recip. Getting up from sitting is painful and the pain continues whiles he is moving. Will need to have both knees replaced as she loses weight. Left will be first. Currently off work- September 18 - PMHx/Meds: see chart. - Objective Posture: FH, RS, increased kyphosis- can correct but does not maintain. Gait: antalgic- decreased stance bilateral with poor heel/toe pattern. HR/TR: able but reports pain. SLS: weight shift but is unable to SLS. ROM: Left: 10-55 degrees Right: 10-70 degrees. Strength: Ankle: 4/5, Knee: 4-/5 with pain, Hip: 3+/5 Core: poor. Flex: HS: severe, Gastroc: severe - Goals Goal 1:: Patient will be I with HEP and progression Goal Time Frame: 4-6 Weeks Goal 2:: Patient will ambulate >300 feet with a normalized gait pattern Goal Time Frame: 4-6 Weeks Goal 3:: Patient will asc/desc 8 stairs recip with 1 HR Goal Time Frame: 4-6 Weeks Goal 4:: Patient will report no more than 8/10 pain Goal Time Frame: 4-6 Weeks - Rehabilitation Potential Physical Therapy Diagnosis: Patient presents with hypomobility- she has decreased ROM, strength, flex and muscular endurance leading to abnormal gait and decreased ability to perform work/ADL's Rehabilitation Potential: Fair - Anticipated Interventions Patient/Client Instruction: Educate patient on: Benefits of Fitness Program Therapeutic Exercise to Include: Strength training, Endurance training, Balance training, Coordination, Agility training, Body mechanics, Postural training, Flexibilty training, Gait and locomotor training, Neuromotor development, In an aquatic setting, Passive ROM, Active ROM, Dynamic Lumbar Stabilization For the Purpose of:: To improve muscle performance and motor function Thank you for the opportunity to evaluate your patient. For Medicare and Medicare HMO plans, please review the plan of care and approve it. It will need to be FAXED BACK to us at [phone] for Medicare purposes. For Medicare only, by signing this I certify the plan of care. Please let me know if there are questions or concerns regarding this plan of care. Physician Signature: Date:
--- NOTE | 2019-09-11 09:18 | HP.PTDCSUM_ITS ---
It has been my pleasure to treat MANINDER SEVERINO referred by Dr. Morgan Cadena MD, with the diagnosis of Bilateral Knee OA for a total of 5 visit(s). Discharge Date: Please see the following information for a summary of their discharge status. Subjective: Patient reports that she is better than when she started- she can only do so much exercises until they start to cramp- trying to find the happy medium. Plans to continue to do her pool therapy indep with her gym membership. RLE Pain Intensity (Out of 10): 10 LLE Pain Intensity (Out of 10): 10 Lumbar Spine Pain Intensity (Out of 10): 0 % Improvement: 60 Objective/Function: Posture: FH, RS, increased kyphosis- can correct but does not maintain. Gait: less antalgic- decreased stance bilateral with poor heel/toe pattern. Betty has improved HR/TR: able without pain. SLS: weight shift but is unable to SLS for longer than 2 seconds before using UE for assist. ROM: Left: 10-55 degrees Right: 10-70 degrees. Strength: Ankle: 4+/5, Knee: 4/5 with pain, Hip: 4-/5 Core: poor. Flex: HS: severe, Gastroc: severe Goal 1:: Patient will be I with HEP and progression Goal 2:: Patient will ambulate >300 feet with a normalized gait pattern Goal 3:: Patient will asc/desc 8 stairs recip with 1 HR Goal 4:: Patient will report no more than 8/10 pain Plan: Discharge to [facility] in aquatic therapy. If there are questions or concerns regarding this patient's physical therapy, please feel free to call me at [phone]. Thank you for the referral of this patient. Sincerely, Alisa Terrell DPT
== END 2019-09-11 19:00 | disposition home or self-care (01) ==
LOC: PT 09:00
PROVIDERS: PCP Family Medicine; Referring Provider Specialist; Visit Provider Specialist
DX: M17.0 Bilateral primary osteoarthritis of knee (principal)
CPT/HCPCS: 97110; 97113; 97161; 97164

== ENCOUNTER 2019-09-26 10:13 | Outpatient (RCR) | payer BC, SELFPAY ==
[2017-05-18 14:28] VITALS: BMI 42.4
== END 2019-10-06 23:59 ==
LOC: NS 10:13
PROVIDERS: PCP Family Medicine; Visit Provider Specialist
DX: Z71.3 Dietary counseling and surveillance (principal); E66.8 Other obesity; Z68.41 Body mass index [BMI] 40.0-44.9, adult
CPT/HCPCS: 97802; 97803

== ENCOUNTER 2019-10-17 10:59 | Outpatient (RCR) | payer BC, MEDICAID, SELFPAY ==
[2017-05-18 14:28] VITALS: BMI 42.4
== END 2019-11-06 23:59 ==
LOC: NS 10:59
PROVIDERS: PCP Family Medicine; Visit Provider Specialist
DX: Z71.3 Dietary counseling and surveillance (principal); E66.8 Other obesity; Z68.41 Body mass index [BMI] 40.0-44.9, adult
CPT/HCPCS: 97803

== ENCOUNTER 2019-12-05 09:00 | Outpatient (RCR) | payer BC, SELFPAY ==
[2017-05-18 14:28] VITALS: BMI 42.4
== END 2019-12-05 23:59 | disposition home or self-care (01) ==
LOC: NS 09:00
PROVIDERS: PCP Family Medicine; Visit Provider Specialist
DX: Z71.3 Dietary counseling and surveillance (principal); E66.8 Other obesity; Z68.41 Body mass index [BMI] 40.0-44.9, adult
CPT/HCPCS: 97803

== ENCOUNTER → 2020-05-10 10:24 | Outpatient (CLI) | payer BC, MEDICAID, SELFPAY ==
--- NOTE | 2020-05-10 10:29 | VDLE_ITS ---
Reason For Study: Cellulitis/Pain RLE RIGHT GSV is normal. CFV is compressible, spontaneous, phasic, competent and demonstrates normal augmentation. FV is compressible, spontaneous, phasic, competent and demonstrates normal augmentation. POP V is compressible, spontaneous, phasic, competent and demonstrates normal augmentation. T/P Trunk is compressible. PTV is compressible. RT PerV is compressible. Procedure This is a venous duplex using B-mode, color flow and spectral Doppler. Exam performed in department. Technically difficult to visualize calf veins. A preliminary report was called and/or faxed to [facility]. Interpretation Summary Deep veins of the right lower extremity are patent and compressible segmentally. There is no evidence of right lower extremity deep vein thrombosis. Valvular competence appears intact within the proximal deep venous system on the right . The right great saphenous vein appears patent and compressible segmentally. Ordering Physician: Tim Ordonez Referring Physician: Chana Mckeon M.D. Performed By: Mirna Morel RVT
== END ==
PROVIDERS: PCP Family Medicine; Referring Provider Physician Assistant Surgical; Visit Provider Physician Assistant Surgical
DX: M79.661 Pain in right lower leg (principal); L03.115 Cellulitis of right lower limb
CPT/HCPCS: 93971

== ENCOUNTER → 2020-05-10 16:36 | Outpatient (CLI) | payer BC, MEDICAID, SELFPAY ==
[2017-05-18 14:28] VITALS: BMI 42.4
[2020-05-10 17:53] LABS: Absolute Lymphocyte Count 2.15 X10^3/uL (0.83-4.51); Absolute Neutrophil Count 3.8 X10^3/uL (2.0-7.7); Basophil# 0.02 X10^3/uL; Basophil% 0.3 % (0-1); Eosinophil# 0.05 X10^3/uL; Eosinophils% 0.8 % (0-5); Hematocrit 40.3 % (37-47); Hemoglobin 12.4 g/dL (12.0-15.0); Lymphocyte # 2.15 X10^3/ul (4.0); Lymphocyte % 33.6 % (19-41); Mean Corp Hgb Conc 30.8 g/dL (32-36); Mean Corpuscular Hgb 26.2 pg (27.0-32.0); Mean Corpuscular Volume 85.2 fL (81-99); Mean Platelet Vol. 10.7 fl (6.2-12.0); Monocyte# 0.36 X10^3/uL; Monocyte% 5.6 % (0-10); NRBC Flagged by Analyzer 0 % (0-5); Neutrophil # 3.81 X10^3/uL (2.7-7.7); Neutrophil % 59.5 % (47-70); Platelet Count 215 K/mm3 (150-450); RBC Distribution Width CV 14.9 % (11.6-14.6); RBC Distribution Width SD 46.6 fl (35.1-43.9); Red Blood Count 4.73 M/mm3 (4.2-5.4); White Blood Count 6.4 K/mm3 (4.4-11.0)
[2020-05-10 18:53] LABS: Thyroid Stim Hormone (TSH) 2.26 uIU/mL (0.358-3.74)
== END ==
PROVIDERS: PCP Family Medicine; Referring Provider Family Medicine; Visit Provider Family Medicine
DX: R60.0 Localized edema (principal)
CPT/HCPCS: 36415; 84443; 85025

== ENCOUNTER 2020-05-31 11:48 | Emergency (ER) | payer BC, MEDICAID, SELFPAY ==
[2020-05-31 11:49] VITALS: BP 154/109; PULSE 83; RESP 18; TEMP 36.4; O2SAT 99; BMI 44.9
--- NOTE | 2020-05-31 12:13 | EKG12_ITS ---
Test Reason : Blood Pressure : / mmHG Vent. Rate : 069 BPM Atrial Rate : 069 BPM P-R Int : 180 ms QRS Dur : 092 ms QT Int : 416 ms P-R-T Axes : 047 043 050 degrees QTc Int : 445 ms Normal sinus rhythm Normal ECG Confirmed by AZAM CAMPBELL, YOGESH ([id number]), offline editor EDA GOLDMAN ([id number]) on 06/03/2020 1:45:43 PM Referred By: PIETRO Confirmed By:YOGESH NASCIMENTO MD
[2020-05-31] MEDS: 0.9% Normal Saline 1,000 ML 1000 ML IV (13:03)
[2020-05-31 13:10] LABS: Absolute Lymphocyte Count 1.46 X10^3/uL (0.83-4.51); Absolute Neutrophil Count 7.8 X10^3/uL (2.0-7.7); Basophil# 0.01 X10^3/uL; Basophil% 0.1 % (0-1); Eosinophil# 0.03 X10^3/uL; Eosinophils% 0.3 % (0-5); Hematocrit 39.7 % (37-47); Lymphocyte # 1.46 X10^3/ul (4.0); Lymphocyte % 14.6 % (19-41); Mean Corp Hgb Conc 32.7 g/dL (32-36); Mean Corpuscular Hgb 27.7 pg (27.0-32.0); Mean Corpuscular Volume 84.6 fL (81-99); Mean Platelet Vol. 10.5 fl (6.2-12.0); Monocyte# 0.58 X10^3/uL; Monocyte% 5.8 % (0-10); NRBC Flagged by Analyzer 0 % (0-5); Neutrophil # 7.84 X10^3/uL (2.7-7.7); Neutrophil % 78.6 % (47-70); Platelet Count 168 K/mm3 (150-450); RBC Distribution Width CV 15.2 % (11.6-14.6); RBC Distribution Width SD 46.6 fl (35.1-43.9); Red Blood Count 4.69 M/mm3 (4.2-5.4)
[2020-05-31 13:25] LABS: Anion Gap 6 (5-15); BUN 21 mg/dL (7-18); BUN/Creat Ratio 23.5 RATIO (10-20); Calcium,Total 8.9 mg/dL (8.5-10.1); Chloride 105 mmol/L (98-107); Creatinine, Serum 0.89 mg/dL (0.55-1.02); EST Glomerular Filtration Rate 69 mL/min (>60); Est Glom Filt Rate - Afr Amer 84 mL/min (>60); Estimated Creatinine Clearance 62.76 ml/min; Glucose 96 mg/dL (74-106); Sodium Level 140 mmol/L (136-145)
[2020-05-31 13:36] VITALS: BP 141/81; BP 152/85; BP 152/96; PULSE 67; PULSE 72; PULSE 80
--- NOTE | 2020-05-31 13:38 | ED.VISSUMM ---
- ER Visit Summary Date of Service: 05/31/20 Chief Complaint: Near syncope History of Present Illness: The patient is a [address] Mckeon. She reports that she has a remote history of a left knee replacement. She was to go to the dentist this morning and took 2 g of amoxicillin on an empty stomach. States that approximately 30 minutes later she became nauseated and vomited 4-5 times. No blood in his emesis. She reports that she was lightheaded. States that she went in the bathroom to have diarrhea and when she stood up she was shaky lightheaded, weak. While she was standing at the sink her vision abimael out she did not fall. Patient denies any chest pain or palpitations with these things. She reports that she has had 2 episodes of diarrhea. No blood in her stools or black tarry stools. Physical Examination: Vitals: Stable. Afebrile. General: Well-nourished and well-developed. Head: Normocephalic atraumatic. Neck: Supple, no lymphadenopathy. No JVD. Nontender. Cardiovascular: Regular rate and rhythm. No murmurs. Respiratory: No respiratory distress. Clear to auscultation bilaterally. Abdominal: Soft, nontender, nondistended, normal bowel sounds. No guarding, rebound, or peritoneal signs. Back: Nontender. Extremities: Nontender, no edema. Skin: Normal color, no rash. Neurologic: Alert and oriented ?3. Cranial nerves II through XII are intact. Normal strength and sensation. Psych: Normal affect. Test Results: EKG is sinus at 69. Normal intervals. No evidence of HOCM or Brugada syndrome. CBC shows segmented for 79 lymphocytes 15. Chem-7 shows a BUN 21. Troponin is negative. Emergency Department Course and Treatment: Patient was given a liter normal saline. She refused pain and nausea medications. She is resting comfortably. Treatment Plan: Patient will be discharged with instructions to not take amoxicillin on an empty stomach in the future. Push fluids. Follow-up with her primary care physician 1 to 2 days if not improving. Return to the emergency department for any worsening symptoms. Disposition: To home in improved and stable condition. Impression: 1. Adverse reaction to amoxicillin. 2. Vasovagal near syncope. This note was generated with [employer] software. It may contain incorrect words, spelling, and punctuation that were not noted in review of the chart prior to signing ED Disposition - Plan for ED Patient: Instructions: ED Near-Fainting- Vagal Reaction Referrals: Chana Mckeon MD [Primary Care Provider] - 1-2 Days if not improving
== END 2020-05-31 13:54 | disposition home or self-care (01) ==
LOC: ED 12:29
PROVIDERS: Emergency Provider Emergency Medicine; PCP Family Medicine
DX: R55 Syncope and collapse (principal); T36.0X5A Adverse effect of penicillins, initial encounter; Z87.891 Personal history of nicotine dependence
CPT/HCPCS: 80048; 84484; 85025; 93005; 96360; 99285; J7030

== ENCOUNTER 2020-08-28 10:29 | Outpatient (RCR) | payer BC, MEDICAID, SELFPAY | END 2020-09-04 23:59 | LOC: NS 10:29 | PROVIDERS: PCP Family Medicine; Visit Provider Physician Assistant Surgical | DX: Z71.3 Dietary counseling and surveillance (principal); E66.8 Other obesity; Z68.41 Body mass index [BMI] 40.0-44.9, adult | CPT/HCPCS: 97802 ==

== ENCOUNTER 2020-09-25 11:00 | Outpatient (RCR) | payer BC, MEDICAID, SELFPAY | END 2020-10-05 23:59 | LOC: NS 11:00 | PROVIDERS: PCP Family Medicine; Visit Provider Physician Assistant Surgical | DX: E66.8 Other obesity (principal); Z68.41 Body mass index [BMI] 40.0-44.9, adult | CPT/HCPCS: 97803 ==

== ENCOUNTER 2020-10-22 10:58 | Outpatient (RCR) | payer BC, MEDICAID, SELFPAY | END 2020-11-05 23:59 | LOC: NS 10:58 | PROVIDERS: PCP Family Medicine; Visit Provider Physician Assistant Surgical | DX: Z71.3 Dietary counseling and surveillance (principal); E66.8 Other obesity; Z68.41 Body mass index [BMI] 40.0-44.9, adult | CPT/HCPCS: 97803 ==

== ENCOUNTER 2020-11-06 10:00 | Outpatient (RCR) | payer BC, MEDICAID, SELFPAY ==
--- NOTE | 2020-07-24 09:02 | HP.PTEVAL ---
Patient's Visit Information MANINDER SEVERINO is a 59 year old F referred to Physical Therapy by Mohit Ordonez PA-C with a diagnosis of R knee OA. Date of Evaluation: 07/24/20 Physical Therapist: Elijah Fofana, PT, ATC - Visit Plan Frequency: 2x /Week Duration: 4 Weeks Plan: Aquatic therapy program consisting of R LE stretching and strengthening, core stab ex's, and HEP - Subjective Pt reports her R knee has been sore for over 20 years. Pt reports she saw doctors over the years that told her she was too young to have a knee replacement. 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 Pt reports finally saw Dr. Cadena in August of last year where he replaced her L knee at that time. Pt reports L knee is much better now, but her R knee is very sore. Pt reports she has difficulty with stair negotiation secondary to R knee pain. Pt reports she was only able to get 100 degrees of flexion in her L knee. Pt reports she has been scheduled for R TKA on 2 occasions, but has had to cancel them secondary to high BP and weight gain. Pt reports she is to perform PT for about one month, and then has a followup with Dr. Cadena. Pt denies tingling or numbness in R LE. Pt reports sleep difficulty secondary to pain. Pt reports she is very limited with ambulation secondary to pain. Pt ambulates with the use of a standard cane at this time. 1/10 pain at rest, 10/10 pain at worst - Pain R knee Pain Intensity (Out of 10): 1 Pain Intensity Range: 10 - Objective Neuro: B UE sensation is WNL to light touch. B achilles reflex= 1/3. MMT: R knee ext= 23, flex= 18; L knee ext= 15, flex= 19. ROM: L knee 0-90, R knee 0-10-82. Girth at patella/6 above: R knee 63/72 cm, L knee 58/71. Tu.5 - Goals Goal 1:: Decrease R knee pain x 50% to aid with sleep Goal Time Frame: 2-4 Weeks Goal 2:: Increase R knee ROM x 10 degrees to aid with restoring a more normalized gait pattern Goal Time Frame: 2-4 Weeks Goal 3:: Increase R knee strength x 5#'s to aid with IADL's Goal Time Frame: 2-4 Weeks Goal 4:: I with HEP Goal Time Frame: 2-4 Weeks - Rehabilitation Potential Physical Therapy Diagnosis: R knee pain, weakness, and limited ROM secondary to L knee OA Rehabilitation Potential: Good - Anticipated Interventions Patient/Client Instruction: Educate patient on: Condition, Plan of Care For the Purpose of:: To improve self management Therapeutic Exercise to Include: Strength training, Endurance training, Flexibilty training, In an aquatic setting, Active ROM, Dynamic Lumbar Stabilization For the Purpose of:: To decrease pain, To increase ROM, To improve muscle performance and motor function Thank you for the opportunity to evaluate your patient. For Medicare and Medicare HMO plans, please review the plan of care and approve it. It will need to be FAXED BACK to us at [phone] for Medicare purposes. For Medicare only, by signing this I certify the plan of care. Please let me know if there are questions or concerns regarding this plan of care. Physician Signature: Date:
--- NOTE | 2020-08-23 10:07 | HP.PTREVAL_ITS ---
Mohit Ordonez PA-C, It has been my pleasure to treat MANINDER SEVERINO over the last 10 visits for R knee OA. Please see the progress note below for an update on the physical therapy plan of care! Subjective: I have improved a lot from PT this so far Objective/Function: R knee pain 05/15. R knee MMT: flex= 23, ext= 19 #/F. R kn ee ROM: 0-10-95. Pt is showing holguin with functional ROM, still displays pain and weakness for functional activity Plan Plan: Attempt to get 10 more visits approved Goals Goal 1:: Decrease R knee pain x 50% to aid with sleep Goal Time Frame: 2-4 Weeks Goal Progress: Goal Met Goal 2:: Increase R knee ROM x 10 degrees to aid with restoring a more normalized gait pattern Goal Time Frame: 2-4 Weeks Goal Progress: Goal Met Goal 3:: Increase R knee strength x 5#'s to aid with IADL's Goal Time Frame: 2-4 Weeks Goal Progress: Progressing Goal 4:: I with HEP Goal Time Frame: 2-4 Weeks Goal Progress: Progressing Anticipated Interventions Patient/Client Instruction: Educate patient on: Condition, Plan of Care For the Purpose of:: To improve self management Therapeutic Exercise to Include: Strength training, Endurance training, Flexibilty training, In an aquatic setting, Active ROM, Dynamic Lumbar Stabilization For the Purpose of:: To decrease pain, To increase ROM, To improve muscle performance and motor function Please do not hesitate to contact me at [phone] by phone or if you have questions or concerns regarding this new plan of care! Sincerely, Elijah Fofana, PT, ATC
--- NOTE | 2021-01-01 15:00 | HP.PTDCNRP_ITS ---
MANINDER SEVERINO was seen in my office for initial evaluation on 07/24/20. The following Plan of Care was established for this patient: Initial Frequency: 2x /Week Initial Duration: 4 Weeks Patient/Client Instruction: Educate patient on: Condition, Plan of Care For the Purpose of:: To improve self management Therapeutic Exercise to Include: Strength training, Endurance training, Flexibilty training, In an aquatic setting, Active ROM, Dynamic Lumbar St abilization For the Purpose of:: To decrease pain, To increase ROM, To improve muscle performance and motor function This patient was last seen in our office . Pertinent comments regarding their Physical therapy will appear below: Pt was treated for 13 PT visits for R UE knee through the date of 11/06/20. Pt has not returned through todays date and is discontinued at this time. At this point I will be discontinuing this patient from physical therapy. I would be happy to see this patient again in the future if found appropriate by the physician. Thank you! Elijah Fofana, PT, ATC Balance/Gait/Functional tests - Balance/Special Test Scores Lower Extremity Functional Score: 26
== END 2020-11-06 19:00 | disposition home or self-care (01) ==
LOC: PT 10:00
PROVIDERS: PCP Family Medicine; Referring Provider Physician Assistant Surgical; Visit Provider Physician Assistant Surgical
DX: M17.11 Unilateral primary osteoarthritis, right knee (principal)
CPT/HCPCS: 97113; 97161; 97164

== ENCOUNTER 2020-11-13 12:16 | Outpatient (RCR) | payer BC, MEDICAID, SELFPAY ==
[2020-11-06 00:36] VITALS: BMI 44.9
== END 2020-12-05 23:59 ==
LOC: NS 12:16
PROVIDERS: PCP Family Medicine; Visit Provider Physician Assistant Surgical
DX: Z71.3 Dietary counseling and surveillance (principal); E66.8 Other obesity; Z68.41 Body mass index [BMI] 40.0-44.9, adult
CPT/HCPCS: 97803

== ENCOUNTER 2020-12-04 17:51 | Emergency (ER) | payer BC, MEDICAID, SELFPAY ==
[2020-12-04 17:53] VITALS: BP 109/76; PULSE 80; RESP 15; TEMP 36.6; O2SAT 100; BMI 47.4
--- NOTE | 2020-12-04 17:57 | EKG12_ITS ---
Test Reason : SYNCOPE Blood Pressure : / mmHG Vent. Rate : 083 BPM Atrial Rate : 083 BPM P-R Int : 178 ms QRS Dur : 096 ms QT Int : 380 ms P-R-T Axes : 056 041 045 degrees QTc Int : 446 ms Normal sinus rhythm Normal ECG Confirmed by AZAM CAMPBELL, YOGESH ([id number]), editor continuity and script EDA GOLDMAN ([id number]) on 12/09/2020 7:34:01 AM Referred By: JAIR Confirmed By:YOGESH NASCIMENTO MD
--- NOTE | 2020-12-04 17:58 | EDS_ITS ---
HPI History of Present Illness Chief Complaint: Syncope Informant: patient and EMS Narrative Narrative: 59-year-old female states she underwent a right knee replacement by Dr. Cadena at [facility] yesterday. She states that she was discharged home today. When she got to her house and walked in, she got very lightheaded. She sat on a chair and family states that she became pale and was just staring off. They shouted at her and eventually she came to. She did not fall over. She denies any chest pain or shortness of breath. She denies any pain other than in the right knee. She is currently on Xarelto. Patient had a near syncopal episode on May 31 with a negative work-up. At that time the near syncope was felt to be vasovagal. [facility] Medical History (Updated 12/04/20 @ 19:[address] Rob Carvajal DO) DVT (deep venous thrombosis) Home Medications oxycodone 5 mg PO Q6H PRN 2 Days #8 tab 12/04/20 [Rx Last Taken Unknown] Allergy/AdvReac Type Severity Reaction Status Date / Time amoxicillin AdvReac Nausea/Vom/ Verified 12/04/20 17:53 Diarrhea diphenhydramine AdvReac irritable Verified 12/04/20 17:53 [From Benadryl] Surgical History (Updated 12/04/20 @ 19:[address] Rob Carvajal DO) History of left knee replacement Status post right knee replacement Social History (Updated 12/04/20 @ 18:[address] Rob Carvajal DO) Smoking Status: Former smoker substance use type: does not use ROS ROS ED Constitutional Constitutional ED: Denies chills or weight loss Eyes Eyes: Denies change in vision or diplopia ENT ENT ED: Denies ear pain, rhinorrhea or sore throat Cardiovascular Cardiovascular: Reports other Details: Syncope/near syncope ; Denies chest pain, orthopnea, palpitations or racing heartbeat Respiratory/Chest Respiratory/Chest: Denies cough, dyspnea or orthopnea Gastrointestinal Gastrointestinal: Denies abdominal pain, diarrhea, nausea or vomiting Genitourinary Genitourinary ED: Denies dysuria, hematuria or urinary frequency Musculoskeletal Musculoskeletal: Reports other Details: Right knee pain ; Denies arthralgias or myalgias Integumentary Denies abscess or rash Neurologic Neurologic: Denies headache(s) or weakness Psychiatric Psychiatric: Denies anxiety, depression, suicidal ideation or suicidal thoughts Endocrine Endocrinology: Denies polydipsia, polyphagia or polyuria Allergic/Immunologic Allergic/Immunologic ED: Denies mouth swelling, tongue swelling or urticaria EXAM Physical Exam Const Vital Signs: 12/04/20 17:53 12/04/20 17:57 12/04/20 18:31 Temperature 98 F Temperature Source Temporal Pulse Rate 80 86 Respiratory Rate 15 16 Respiratory Effort Normal Non-Labored Respiratory Pattern Normal Blood Pressure 109/76 110/62 Blood Pressure Mean 87 78 Pulse Ox 100 100 Oxygen Delivery Method Room Air Room Air Positive well nourished and well developed General Appearance ED: well developed HEENT Reports normocephalic, head/scalp atraumatic, TM's clear and moist mucous membranes Negative for trauma Tympanic Membrane ED: Yes TM's clear Eyes PERRL and EOMs intact bilaterally Neck no lymphadenopathy, supple and no JVD Resp normal respiratory effort and clear to auscultation bilaterally Cardio regular rate, regular rhythm and no murmurs GI normal to inspection, nondistended, normoactive bowel sounds and non-tender Palpation: soft Back/Spine no CVA tenderness and normal ROM Extremity Extremity Narrative: Bilateral lower extremity edema. There are wraps in place. Neuro oriented x3 and CN's II-XII intact bilaterally Sensorium / Orientation: alert Motor Exam: strength 5/5 throughout Psych mental status grossly normal Mood & Affect: Negative for depressed or tearful Skin no rashes or lesions noted and no wounds MDM MDM MDM Narrative Medical decision making narrative: CBC shows a hemoglobin of 9.6. White count 8.6. Platelets are 153. CMP essentially negative. Her troponin high- sensitivity 7. She has had no events on the monitor. She is not orthostatic. My interpretation of the chest x-ray is no acute process. At this point patient will be discharged home. We will give her dose of her Pepcid here as well as a short course of oxycodone as all of her prescriptions were sent to the [facility] pharmacy and they are currently closed. Lab Data Attestation: I reviewed the patient's lab results. Labs: Laboratory Results - last 24 hr 12/04/20 12/04/20 17:55 17:55 WBC 8.6 RBC 3.36 L Hgb 9.6 L Hct 29.9 L MCV 89.0 MCH 28.6 MCHC 32.1 RDW Std Deviation 46.7 H RDW Coeff of Jessica 14.4 Plt Count 153 MPV 11.2 Immature Gran % (Auto) 0.500 Neut % (Auto) 65.6 Lymph % (Auto) 26.3 [place] % (Auto) 6.9 Eos % (Auto) 0.5 Baso % (Auto) 0.2 Absolute Neuts (auto) 5.6 Absolute Lymphs (auto) 2.25 Nucleated RBC % 0 Sodium 137 Potassium 3.9 Chloride 104 Carbon Dioxide 26.0 Anion Gap 7 BUN 16 Creatinine 1.06 H Estim Creat Clear Calc 52.69 Est GFR (MDRD) Af Amer 69 Est GFR (MDRD) Non-Af 57 L BUN/Creatinine Ratio 15.1 Glucose 146 H Calcium 7.9 L Total Bilirubin 0.30 AST 19 ALT 19 Alkaline Phosphatase 67 Troponin I High Sens 7 Total Protein 6.1 L Albumin 2.6 L Globulin 3.5 Albumin/Globulin Ratio 0.7 L Radiography Diagnostic Testing: Radiology Impression Chest X-Ray 12/04/20 18:04 IMPRESSION: There are no acute findings. Electronically Signed: Elijah Walker MD at 18:26 EDT , Service support , EKG Initial EKG: Attestation: I personally reviewed and interpreted this EKG as follows: Comments: Normal sinus rhythm with a ventricular rate of 83 bpm. No concerning features of ACS or ectopy noted Discharge Plan Triage Chief Complaint: Syncope ED Provider: Rob Carvajal Dx/Rx/DC Orders Clinical Impression: Near syncope Prescriptions: New oxycodone 5 mg tablet 5 mg PO Q6H PRN (Reason: pain) 2 Days Qty: 8 RF: 0 Primary Care Provider: Chana Mckeon Referrals: Chana Mckeon MD [Primary Care Provider] - As Needed Disposition Disposition: Home, Self Care
--- NOTE | 2020-12-04 18:04 | RAD_ITS ---
STUDY: XR Chest 1 View 12/04/2020 6:04 PM REASON FOR EXAM: Female, 59 years old. CHEST PAIN syncope COMPARISON: None TECHNIQUE: XR Chest 1 View FINDINGS: There is no demonstrated pleural abnormality. Enlarged heart size. Normal mediastinum. Normal alicja. Prominent appearing increased interstitial lung markings. Normal visualized pulmonary arteries. There is atherosclerotic calcification of the aortic arch with tortuosity. There are diffuse degenerative changes of the visualized thoracic spine. There is degenerative osteoarthritis of the bilateral shoulders. There is no demonstrated abnormality of the visualized soft tissue structures of the upper abdomen. RAD/Chest 1 View (Portable) IMPRESSION: There are no acute findings. Electronically Signed: Elijah Walker MD at 18:26 EDT , Service support ,
[2020-12-04 18:10] LABS: Absolute Lymphocyte Count 2.25 X10^3/uL (0.83-4.51); Absolute Neutrophil Count 5.6 X10^3/uL (2.0-7.7); Basophil# 0.02 X10^3/uL; Basophil% 0.2 % (0-1); Eosinophil# 0.04 X10^3/uL; Eosinophils% 0.5 % (0-5); Hematocrit 29.9 % (37-47); Hemoglobin 9.6 g/dL (12.0-15.0); Lymphocyte # 2.25 X10^3/ul (0.83-4.51); Lymphocyte % 26.3 % (19-41); Mean Corp Hgb Conc 32.1 g/dL (32-36); Mean Corpuscular Hgb 28.6 pg (27.0-32.0); Mean Platelet Vol. 11.2 fl (6.2-12.0); Monocyte# 0.59 X10^3/uL; Monocyte% 6.9 % (0-10); NRBC Flagged by Analyzer 0 % (0-5); Neutrophil # 5.62 X10^3/uL (2.7-7.7); Neutrophil % 65.6 % (47-70); Platelet Count 153 K/mm3 (150-450); RBC Distribution Width CV 14.4 % (11.6-14.6); RBC Distribution Width SD 46.7 fl (35.1-43.9); Red Blood Count 3.36 M/mm3 (4.2-5.4); White Blood Count 8.6 K/mm3 (4.4-11.0)
[2020-12-04 18:28] LABS: ALB/GLOB Ratio 0.7 RATIO (0.9-2.4); AST(SGOT) 19 U/L (15-37); Alanine Aminotransfer ALT/SGPT 19 U/L (13-56); Albumin, Serum 2.6 g/dL (3.2-5.0); Alkaline Phosphatase 67 U/L (45-117); Anion Gap 7 (5-15); BUN 16 mg/dL (7-18); BUN/Creat Ratio 15.1 RATIO (10-20); Calcium,Total 7.9 mg/dL (8.5-10.1); Chloride 104 mmol/L (98-107); Creatinine, Serum 1.06 mg/dL (0.55-1.02); EST Glomerular Filtration Rate 57 mL/min (>60); Est Glom Filt Rate - Afr Amer 69 mL/min (>60); Estimated Creatinine Clearance 52.69 ml/min; Globulin 3.5 g/dL (2.2-4.2); Glucose 146 mg/dL (74-106); Potassium 3.9 mmol/L (3.5-5.1); Protein, Total 6.1 g/dL (6.4-8.2); Sodium Level 137 mmol/L (136-145); Troponin-I HS 7 pg/mL (3.0-54.0)
[2020-12-04] MEDS: oxyCODONE 5 MG Tablet PO (18:30)
[2020-12-04 18:31] VITALS: BP 110/62; PULSE 86; RESP 16; O2SAT 100
[2020-12-04 19:45] VITALS: BP 109/68; BP 99/76
== END 2020-12-04 20:25 | disposition home or self-care (01) ==
PROVIDERS: Emergency Provider Emergency Medicine; PCP Family Medicine
DX: R55 Syncope and collapse (principal); Z87.891 Personal history of nicotine dependence; Z79.01 Long term (current) use of anticoagulants
CPT/HCPCS: 71045; 80053; 84484; 85025; 93005; 99285; A4216

== ENCOUNTER → 2020-12-16 09:50 | Outpatient (CLI) | payer BC, MEDICAID, SELFPAY ==
[2020-12-16 10:42] LABS: Absolute Lymphocyte Count 1.63 X10^3/uL (0.83-4.51); Absolute Neutrophil Count 4.5 X10^3/uL (2.0-7.7); Basophil# 0.02 X10^3/uL; Basophil% 0.3 % (0-1); Eosinophils% 1.5 % (0-5); Hematocrit 31.7 % (37-47); Hemoglobin 9.7 g/dL (12.0-15.0); Lymphocyte # 1.63 X10^3/ul (0.83-4.51); Lymphocyte % 24.4 % (19-41); Mean Corp Hgb Conc 30.6 g/dL (32-36); Mean Corpuscular Hgb 28.1 pg (27.0-32.0); Mean Corpuscular Volume 91.9 fL (81-99); Mean Platelet Vol. 10.1 fl (6.2-12.0); Monocyte# 0.39 X10^3/uL; Monocyte% 5.8 % (0-10); NRBC Flagged by Analyzer 0.3 % (0-5); Neutrophil # 4.51 X10^3/uL (2.7-7.7); Neutrophil % 67.7 % (47-70); Platelet Count 293 K/mm3 (150-450); RBC Distribution Width CV 14.6 % (11.6-14.6); RBC Distribution Width SD 47.9 fl (35.1-43.9); Red Blood Count 3.45 M/mm3 (4.2-5.4); White Blood Count 6.7 K/mm3 (4.4-11.0)
[2020-12-16 11:07] LABS: Anion Gap 6 (5-15); BUN 13 mg/dL (7-18); BUN/Creat Ratio 17.1 RATIO (10-20); Calcium,Total 9.1 mg/dL (8.5-10.1); Chloride 105 mmol/L (98-107); Creatinine, Serum 0.76 mg/dL (0.55-1.02); EST Glomerular Filtration Rate 83 mL/min (>60); Est Glom Filt Rate - Afr Amer 100 mL/min (>60); Glucose 94 mg/dL (74-106); Potassium 4.4 mmol/L (3.5-5.1); Sodium Level 139 mmol/L (136-145)
== END ==
LOC: LAB 09:52
PROVIDERS: PCP Family Medicine; Referring Provider Physician Assistant Surgical; Visit Provider Physician Assistant Surgical
DX: Z96.651 Presence of right artificial knee joint (principal)
CPT/HCPCS: 36415; 80048; 85025

== ENCOUNTER 2020-12-31 14:36 | Outpatient (RCR) | payer BC, MEDICAID, SELFPAY ==
[2020-12-06 00:28] VITALS: BMI 44.9
== END 2021-01-05 23:59 ==
LOC: NS 14:36
PROVIDERS: PCP Family Medicine; Visit Provider Physician Assistant Surgical
DX: Z71.3 Dietary counseling and surveillance (principal); E66.8 Other obesity; Z68.41 Body mass index [BMI] 40.0-44.9, adult
CPT/HCPCS: 97803

== ENCOUNTER → 2021-01-03 14:16 | Outpatient (CLI) | payer BC, MEDICAID, SELFPAY ==
--- NOTE | 2021-01-03 14:19 | VDLE_ITS ---
Reason For Study: Pain RIGHT GSV is normal. CFV is compressible, spontaneous, phasic, competent and demonstrates normal augmentation. FV is compressible, spontaneous, phasic, competent and demonstrates normal augmentation. POP V is compressible, spontaneous, phasic, competent and demonstrates normal augmentation. T/P Trunk is compressible. PTV is compressible. RT PerV is compressible. Difficult to visualize calf veins due to patient body habitus/swelling. Procedure This is a venous duplex using B-mode, color flow and spectral Doppler. Exam performed in department. The study was technically difficult. A preliminary report was called and/or faxed to Tim G[facility]. VL/Venous Duplex US, Unilateral Interpretation Summary Deep veins of the right lower extremity are patent and compressible segmentally . There is no evidence of right lower extremity deep vein thrombosis. Valvular competence linda ears intact within the proximal deep venous system on the right . The right great saphenous vein a ppears patent and compressible segmentally. The right lower extremity deep calf veins were not we ll visualized due to swelling and the patient's body habitus. Ordering Physician: Tim Ordonez Referring Physician: Chana Mckeon Performed By: Alisha Natarajan RDCS, RVT
== END ==
PROVIDERS: PCP Family Medicine; Referring Provider Physician Assistant Surgical; Visit Provider Physician Assistant Surgical
DX: M79.661 Pain in right lower leg (principal)
CPT/HCPCS: 93971

== ENCOUNTER → 2021-01-08 14:02 | Outpatient (CLI) | payer BC, MEDICAID, SELFPAY ==
[2021-01-08 15:24] LABS: Absolute Lymphocyte Count 2.02 X10^3/uL (0.83-4.51); Absolute Neutrophil Count 4.5 X10^3/uL (2.0-7.7); Basophil# 0.03 X10^3/uL; Basophil% 0.4 % (0-1); Eosinophil# 0.07 X10^3/uL; Hematocrit 38.4 % (37-47); Hemoglobin 12.1 g/dL (12.0-15.0); Lymphocyte # 2.02 X10^3/ul (0.83-4.51); Lymphocyte % 28.7 % (19-41); Mean Corp Hgb Conc 31.5 g/dL (32-36); Mean Corpuscular Hgb 28.4 pg (27.0-32.0); Mean Corpuscular Volume 90.1 fL (81-99); Mean Platelet Vol. 10.7 fl (6.2-12.0); Monocyte# 0.43 X10^3/uL; Monocyte% 6.1 % (0-10); NRBC Flagged by Analyzer 0 % (0-5); Neutrophil # 4.48 X10^3/uL (2.7-7.7); Neutrophil % 63.5 % (47-70); Platelet Count 232 K/mm3 (150-450); RBC Distribution Width CV 14.3 % (11.6-14.6); Red Blood Count 4.26 M/mm3 (4.2-5.4); White Blood Count 7.1 K/mm3 (4.4-11.0)
== END ==
PROVIDERS: PCP Family Medicine; Referring Provider Family Medicine; Visit Provider Family Medicine
DX: D64.9 Anemia, unspecified (principal)
CPT/HCPCS: 36415; 85025

== ENCOUNTER 2021-05-15 10:30 | Outpatient (RCR) | payer BC, MEDICAID, SELFPAY ==
--- NOTE | 2021-04-04 09:43 | HP.PTEVAL_ITS ---
Patient's Visit Information MANINDER SEVERINO is a 60 year old F referred to Physical Therapy by Dr. Morgan Cadena MD with a diagnosis of PRESNENCE OF RIGHT ATRIFICAL KNEE,PRESNECE OF LEFT ARTIFICAL KNEE. Date of Evaluation: 04/04/21 Physical Therapist: Frankie Singh, PT, Cert MDT, OCS - Visit Plan Frequency: 2x /Week Duration: 4 Weeks Plan: PT INTERVETIONS AQUATIC THERAPY ROM/FLEXABLITY KNEE, STRENGTEHNING QUADS/HAMS/HIP AND FUNCTIONAL STRENGTHENING - Subjective This 60 y/o female presents to physical therapy with with RIGHT TKR, LEFT TKR . Patient had Nov 2020 RIGHT, and LEFT Dec 2019. Patient did have PT last year. Patient has had h/o bilateral manipulation last year on right most recently. Seen DR recommended PT for strengthening and ROM with water exercises. Patient continues to have some pain but stop pain MEDS. Patient has difficulty with stairs, extended walking and standing thus uses cane. Patient denies paresthesia/tingling, but decrease sensation loss bilateral knee. Patient has difficulty with housework tasks ,cleaning such as vacuuming and standing to wash dishes thus needs rest periods. Patient lives in apartment no steps ,but has 13 steps to 2nd floor thus bed is downstairs with 1/2 bath downstairs. Patient has tub/shower. Patient condition affects QOL. Patient goals to get stronger and walk better,. VOCATION: [employer] but has disability. SOCIAL: single - Pain Right Knee Pain Intensity (Out of 10): 3 Pain Intensity Range: 10 Comment: worse 5/10 Left Knee Pain Intensity (Out of 10): 3 Pain Intensity Range: 10 Comment: worse 5/10 - Objective POSTURE: mild forward posture. GAIT: reciprocal pattern mild forward posture slow piper with cane. EDEMA: 1+ lower legs. AROM: right knee supine flexion 0-100 degrees ,left knee supine flexion 0-105 degrees. MMT: quads/hams 4-/5 ,hip abduction/flexion 3+/5 ,ankle 4/5. STAIRS: one steps at time with rails. BALANCE: good -. FLEXABILTY: hams WNL - Balance/Special Test Scores Lower Extremity Functional Score: 37 - Goals Goal 1:: I with Aquatic therapy for TKA Goal Time Frame: 4-6 Weeks Goal 2:: Patient to demonstrate 60% improvement with function with knee's to improve gait Goal Time Frame: 4-6 Weeks Goal 3:: Patient to improve ROM knee flexion by 5 degrees > to improve function with stairs Goal Time Frame: 4-6 Weeks Goal 4:: Patient to improve strength quads/hams 4/5,hip flexion/abd 4-/5 to imp rove gait Goal Time Frame: 4-6 Weeks Goal 5:: Patient to improve LFES score by 5 points to improve function and QOL Goal Time Frame: 4-6 Weeks - Rehabilitation Potential Physical Therapy Diagnosis: This patient has h/o TKA with mild pain ,decrease ROM ,strength impairs gait ,stairs and function thus will benefit from skilled PT Rehabilitation Potential: Good - Anticipated Interventions Patient/Client Instruction: Educate patient on: Condition, Plan of Care For the Purpose of:: To decrease pain, To increase ROM, To improve muscle performance and motor function, To increase tolerance to acti vity/condition/position, To improve ability of physical actions for home/community/work/leisure, To improve gait and locomotor functions, To improve health of tissue, To decrease soft tissue restriction, To increase flexibility/ROM, To improve endurance, To improve balance Therapeutic Exercise to Include: Strength training, Endurance training, Balance training, Flexibilty training, Gait and locomotor training, Active ROM For the Purpose of:: To decrease pain, To increase ROM, To improve muscle performance and motor function, To increase tolerance to activity/condition/position, To improve ability of physical actions for home/community/work/leisure, To improve gait and locomotor functions, To decrease soft tissue restriction, To increase flexibility/ROM, To improve endurance, To improve balance Thank you for the opportunity to evaluate your patient. For Medicare and Medicare HMO plans, please review the plan of care and approve it. It will need to be FAXED BACK to us at [phone] for Medicare purposes. For Medicare only, by signing this I certify the plan of care. Please let me know if there are questions or concerns regarding this plan of care. Physician Signature: Date:
--- NOTE | 2021-09-03 13:46 | HP.PTDCSUM ---
It has been my pleasure to treat MANINDER SEVERINO referred by Dr. Morgan Cadena MD, with the diagnosis of PRESNENCE OF RIGHT ATRIFICAL KNEE,PRESNECE OF LEFT ARTIFICAL KNEE for a total of 9 visit(s). Discharge Date: Please see the following information for a summary of their discharge status. Subjective: Patient feels water ex's helped pain.. Patient difficulty stronger and ROM ,descending stairs difficulty Right Knee Pain Intensity (Out of 10): 4 Left Knee Pain Intensity (Out of 10): 4 Lumbar Spine Pain Intensity (Out of 10): 4 % Improvement: 60 Objective/Function: POSTURE: MILD FORWARD POSTURE. GAIT: RECIPROCAL PATTERN. MMT: QUADS/HAM 4/5. AROM: 0-108 DEGREES SUPINE FLEXION KNEE FLEXION Goal 1:: I with Aquatic therapy for TKA Goal 2:: Patient to demonstrate 60% improvement with function with knee's to improve gait Goal 3:: Patient to improve ROM knee flexion by 5 degrees > to improve function with stairs Goal 4:: Patient to improve strength quads/hams 4/5,hip flexion/abd 4-/5 to improve gait Goal 5:: Patient to improve LFES score by 5 points to improve function and QOL Plan: RTD. PT INTERVETIONS AQUATIC THERAPY ROM/FLEXABLITY KNEE, STRENGTEHNING QUADS/HAMS/HIP AND FUNCTIONAL STRENGTHENING If there are questions or concerns regarding this patient's physical therapy, please feel free to call me at [phone]. Thank you for the referral of this patient. Sincerely, Frankie Singh, PT, Cert MDT, OCS Balance/Gait/Functional tests - Balance/Special Test Scores Lower Extremity Functional Score: 46
== END 2021-05-15 19:00 | disposition home or self-care (01) ==
LOC: PT 10:30
PROVIDERS: PCP Family Medicine; Referring Provider Specialist; Visit Provider Specialist
DX: T84.82XD Fibrosis due to internal orthopedic prosthetic devices, implants and grafts, subsequent encounter (principal); Z96.651 Presence of right artificial knee joint; Z96.642 Presence of left artificial hip joint
CPT/HCPCS: 97113; 97162; 97530

== ENCOUNTER → 2023-02-10 | Outpatient (CLI) | payer MEDICARE, SELFPAY ==
--- NOTE | 2023-02-10 12:56 | VDLE_ITS ---
Reason For Study: RLE Swelling RIGHT LEFT GSV is normal. CFV is compressible, spontaneous, phasic, CFV is compressible, spontaneous, phasic, competent, and demonstrates normal competent and demonstrates normal augmentation. augmentation. FV is compressible, spontaneous, phasic, competent and demonstrates normal augmentation. POP V is compressible, phasic, and INCOMPETENT for greater than 1.0 second. T/P Trunk is compressible. PTV is compressible. RT PerV is compressible. Unable to visualize Prox and Mid Peroneal Veins due to swelling/body habitus. Procedure This is a venous duplex using B-mode, color flow and spectral Doppler. Exam performed in department. The study was technically difficult. A preliminary report was called and/or faxed to Dr. Appiah's office. VL/Venous Duplex US, Unilateral Interpretation Summary Deep veins of the right lower extremity are patent and compressible segmentally . There is no evidence of right lower extremity deep vein thrombosis. The right great sapheno us vein appears patent and compressible segmentally. Incidental finding, right popliteal vein reflux Limited study below knee due to body habitus Ordering Physician: Jonny Appiah Referring Physician: Chana Mckeon M.D. Performed By: Jerrell Adamson RVT
== END | disposition home or self-care (01) ==
LOC: CVS 12:55
PROVIDERS: PCP Family Medicine; Referring Provider Family Medicine; Visit Provider Family Medicine
DX: M79.89 Other specified soft tissue disorders (principal)
CPT/HCPCS: 93971

== ENCOUNTER → 2023-06-04 | Outpatient (CLI) | payer OTHER, SELFPAY ==
--- NOTE | 2023-06-04 08:21 | BI_ITS ---
MAMMOGRAPHY - BILATERAL SCREENING REASON FOR EXAM: Female, 62 years old. Routine annual screening examination. PERTINENT HISTORY: Non-contributory. TECHNIQUE: Digital bilateral breast rupesh (3D mammographic acquisition) in the CC and MLO projections. 2-D mediolateral oblique (MLO) and craniocaudad (CC) views of both breasts were obtained. CAD: Full Field Digital Mammography with Computer Added Detection was performed. COMPARISON: Comparison is made with prior study dated March 24, 2016. FINDINGS: Breast Composition: There are scattered areas of fibroglandular density. There are no dominant masses or suspicious calcifications. No other significant abnormalities are identified. There has been no significant change since the prior study. BI/SCRN MAMM (CAD)W/RUPESH BILAT IMPRESSION: Stable bilateral screening mammogram. Yearly follow-up mammogram recommended. (A) ASSESSMENT CATEGORY: BIRADS Category 1: Negative. A letter regarding these results will be sent to the patient by the facility within 30 days. Approximately 10% of breast cancers are not detected by mammography. A normal mammogram should not delay biopsy of a clinically suspicious abnormality. [id number] Electronically Signed: Evaristo Urias MD at 9:15 EDT ,
== END | disposition home or self-care (01) ==
LOC: OPBI 08:20
PROVIDERS: PCP Family Medicine; Referring Provider Family Medicine; Visit Provider Family Medicine
DX: Z12.31 Encounter for screening mammogram for malignant neoplasm of breast (principal)
CPT/HCPCS: 77063; 77067

== ENCOUNTER 2024-02-25 09:13 | Day surgery (SDC) | payer MEDICARE, MEDICAID, SELFPAY ==
[2024-02-25] VITALS (8 sets, daily range): BP systolic 141–180; BP diastolic 77–93; PULSE 79–93; RESP 16; TEMP 36.5–36.7; O2SAT 95–97; BMI 53.7
--- NOTE | 2024-02-25 | IMM_PTH ---
PATIENT: MANINDER SEVERINO LOC: EN U#:[id number] AGE/SX: 63/F ROOM: RE02/25/[address]: Dr. Adalberto Bradley MD : 1960 BED: DIS: 02/25/2024 SPEC #: [id number] RECD: 02/28/24 12:20 STATUS: SHEA REQ #: [id number] JAIRON: 02/25/24 00:[address]: Adalberto Bradley DEPT: IMMUNOHISTOCHEMISTRY RECD BY: Vijay Rabago ENTERED: 02/28/24 12:20 SP TYPE: IMMUNO OTHR DR: Dr. Chana Mckeon MD Tissues: Stomach, NOS Procedures: H Pylori (initial) PHYSICIAN & INSTITUTION [place] [address] SPECIMEN INFORMATION: Tissue Source: Stomach Clinical Info: GERD, screening Specimen Number: [id number] CPT code: 28038 METHODOLOGY: Deparaffinized sections of prefer/formalin-fixed tissue or PAP/DQ stained slides are incubated with monoclonal/polyclonal antibodies/oligonucleotide probes. Localization is made via biotin free immunoperoxidase method. Appropriate controls are performed and reacted as expected. Results on target cell population are indicated in the following table: RESULTS: ANTIBODY / CLONE RESULT H Pylori (polyclonal) negative These tests were developed and their performance characteristics determined by [facility]. They may not have been cleared or approved by the U.S. Food and Drug Administration. The FDA has determined that such clearance or approval is not necessary. The above immunohistochemical/dualISH markers are ordered and reviewed by the Pathologist. INTERPRETATION: Stomach, biopsy: Negative for Helicobacter pylori organisms. SJ:alonzo 02/29/24
--- NOTE | 2024-02-25 | STO_PTH ---
PATIENT: MANINDER SEVERINO LOC: EN U#:[id number] AGE/SX: 63/F ROOM: RE02/25/[address]: Dr. Adalberto Bradley MD : 1960 BED: DIS: 02/25/2024 SPEC #: [id number] RECD: 02/25/24 13:06 STATUS: SHEA RONQUILLOVan #: [id number] JAIRON: 02/25/24 00:[address]: Adalberto Bradley DEPT: SURGICAL PATHOLOGY RECD BY: Randal Lagunas ENTERED: 02/25/24 13:07 SP TYPE: STOMACH BX OTHR DR: Dr. Chana Mckeon MD Tissues: Stomach, NOS Procedures: Surgery Specimen Level IV HEADER OPERATION: Colonoscopy, EGD with biopsy PRE-OP DIAGNOSIS: Encounter for screening for malignant neoplasm of colon, GERD TISSUE SUBMITTED: Stomach biopsy MICROSCOPIC DIAGNOSIS Stomach biopsy: Mild gastritis. See microscopic description and comment. 02/28/2024 COMMENT The results of immunohistochemistry for Helicobacter pylori will be reported separately ([id number]). MICROSCOPIC DESCRIPTION Slides are reviewed. The specimen shows fragments of gastric mucosa with chronic inflammatory cell infiltrates in the lamina propria consisting of lymphocytes and plasma cells, consistent with mild chronic gastritis. GROSS DESCRIPTION Received in fixative is one container labeled with the patient's name and designated Stomach biopsy. The specimen consists of multiple irregular fragments of light sandy soft tissue that in aggregate measure 0.1 x 0.2 x 1.0 cm. The specimen is totally submitted in one cassette. MS/mr 02/25/2024 TC: CPT:38732
--- NOTE | 2024-02-25 09:57 | PCM.PRE.AN2 ---
ASA Classification* ASA Classification ASA Classification: 3 Assessment & Plan Anesthesia* Anesthesia Assessment Anesthesia Assessment: Discussed sedation and/or anesthesia options, risks, benefits, and alternatives with patient/parents/legal guardian/POA. Questions invited. The patient/parents/legal guardian/POA seems to understand and agrees to proceed with anesthesia plan. Reviewed the physical assessment, medical history, allergy history and patient home medications list prior to surgery/procedure/anesthetic and documented any changes. Performed airway and anesthesia risk assessments. Anesthesia Type Anesthesia Type: MAC Anesthesia Focused Assessment* Temperature: 98.1 F Pulse Rate: 93 Blood Pressure: 180/92 Respiratory Rate: 16 Pulse Ox: 97 Airway Assessment Mouth opens: >3 cm Mallampati Score: II Focused Labs Anesthesia Preop lab: CBC WBC 7.1 K/mm3 (4.4-11.0) 01/08/21 14:07 RBC 4.26 M/mm3 (4.2-5.4) 01/08/21 14:07 Hgb 12.1 g/dL (12.0-15.0) 01/08/21 14:07 Hct 38.4 % (37-47) 01/08/21 14:07 Plt Count 232 K/mm3 (150-450) 01/08/21 14:07 CHEMISTRY Potassium 4.4 mmol/L (3.5-5.1) 12/16/20 10:03 Sodium 139 mmol/L (136-145) 12/16/20 10:03 BUN 13 mg/dL (7-18) 12/16/20 10:03 Creatinine 0.76 mg/dL (0.55-1.02) 12/16/20 10:03 Glucose 94 mg/dL (74-106) 12/16/20 10:03 TSH 2.26 uIU/mL (0.358-3.74) 05/10/20 16:43 COAG PT 13.2 SECONDS (11.7-14.9) 05/19/17 02:20 Pre-Assessment Diagnosis/Proposed Procedure Planned Operative Procedure(s): COLONOSCOPY/EGD Anesthesia History 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 When Was Last Pacemaker Check QUESTION #4 FULL TEXT: You/Your Family Experience fever (hyperthermia) with Anesthesia Last Oral Intake Last Oral intake: Last Oral Intake NPO since 00:00 02/25/24 09:36 Meds taken in AM with sips of No 02/25/24 09:36 water? Meds patient instructed to take am of surgery PONV PONV - electronic parts designer: PONV - electronic parts designer Female Yes 02/22/24 15:08 HX of Motion Sickness No 02/22/24 15:08 HX of N/V After Surgery No 02/22/24 15:08 Non-Smoker Yes 02/22/24 15:08 Duration of Surgery greater No 02/22/24 15:08 than 60 minutes Number of Risk Factors 2 02/22/24 15:08 PONV Score Moderate Risk 02/22/24 15:08 Height & Weight Height & Weight: Anesthesia: Height & Weight Height 5 ft 5 in 02/25/24 09:36 Weight: 146.42 kg 02/25/24 09:36 Body Mass Index (BMI) 53.7 02/25/24 09:36 Respiratory Assessment Respiratory Assessment - electronic parts designer: Respiratory Tract Infection Hx - electronic parts designer Hx Respiratory Tract Infection No 02/22/24 15:08 STOP Sleep Apnea STOP Sleep Apnea - electronic parts designer: STOP Sleep Apnea - electronic parts designer Hx Hypertension No 02/22/24 15:08 Hx Sleep Apnea Yes: BORDERLINE PER PT 02/22/24 15:08 CPAP No 02/22/24 15:08 BIPAP No 02/22/24 15:08 Do you snore loudly (louder than talking or can be heard Do you often feel tired/ fatigued/ sleepy during daytime? Has anyone observed you stop breathing during sleep? STOP Results Positive 02/22/24 15:08 QUESTION #5 FULL TEXT : Do you snore loudly (louder than talking or can be heard through closed doors)? 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 Specify any problems Hx of Preganancy in last 3 No 02/22/24 15:08 Months Nurse Filling Out Transfusion VCHRISTIN 02/22/24 15:08 & Questions: Date: 02/22/24 02/22/24 15:08 Time: 15:08 02/22/24 15:08 Patient unable to answer at this time (ie. confused, unrespo /Reproduction History /Reproductive History - electronic parts designer: /Reproductive Hx- electronic parts designer Hx Now Gestational Age (in weeks): EDC: Hx Hx Para Hx Section SAB No 02/22/24 15:08 PFSH Medical History Wears hearing aid Loss of hearing Wears partial dentures Wears glasses Cancer Anxiety Ambulates with cane Arthritis Restless legs Heartburn Gastric reflux Shortness of breath on exertion Sleep apnea Former smoker Leg cramps History of edema History of stress test Hx of malignant neoplasm of skin Depression Adopted DVT (deep venous thrombosis) Home Medications ?Medication ?Instructions ?Recorded ?Last Taken ?Type acetaminophen 500 mg tablet 1,000 mg PO Q6H PRN pain 08/24/23 02/24/24 History (Tylenol Extra Strength) albuterol sulfate 90 mcg/actuation 2 puff inhalation Q4H PRN 08/24/23 Unknown History aerosol inhaler shortness of breath or wheezing fluticasone propionate 50 1 spray intranasal DAILY 08/24/23 02/24/24 History mcg/actuation nasal spray,suspension (Allergy Relief (fluticasone)) omeprazole 40 mg capsule,delayed 40 mg PO DAILY 01/05/24 02/24/24 History release clindamycin HCl 300 mg capsule 600 mg PO .ONE TIME 02/22/24 02/24/24 History Allergy/AdvReac Type Severity Reaction Status Date / Time amoxicillin AdvReac Nausea/Vom/ Verified 02/25/24 09:34 Diarrhea diphenhydramine (From AdvReac irritable Verified 02/25/24 09:34 Benadryl) Family History Unknown Adopted Surgical History History of total knee replacement (TKR) Hx of bilateral salpingectomy Total knee replacement status History of left knee replacement Status post right knee replacement Social History household members: significant other and children housing: apartment current occupational status: retired current occupation: From [employer] Smoking Status: Former smoker alcohol intake: current alcohol intake frequency: holidays/special occasions only substance use type: does not use additional social history: Review of Systems (Anesthesia) ROS Narrative System reviewed and no additional complaints, except as documented.
--- NOTE | 2024-02-25 10:13 | PCM.HP.BLA ---
History and Physical Date of Admission: 02/25/24 Intake Vital Signs 08/23/2410:18 11/30/2413:23 Height 5 ft 5.5 in 5 ft 5 in Weight: 305 lb 329 lb BMI 49.9 54.7 BP 162/95 H Blood Pressure Location Rt brachial Position Sitting Respiration 17 Pulse 77 Pulse Source Monitor Pulse Oximetry (%) 97 Oxygen Delivery Method room air Comment Not routinely taking Lasix.Pt will obtain pre-med from Dr Cadena Intake Visit Reasons: Esophagogastroduodenoscopy Chief Complaint: egd/colonoscopy Is patient in pain?: No Allergies amoxicillin Adverse Reaction (Verified 12/01/23 14:24) Nausea/Vom/Diarrheadiphenhydramine (From Benadryl) Adverse Reaction (Verified 12/01/23 14:24) irritable Medications ?Medication ?Instructions ?Recorded ?Confirmed ?Type acetaminophen 500 mg tablet 1,000 mg PO Q6H PRN pain 08/24/23 12/01/23 History (Tylenol Extra Strength) albuterol sulfate 90 mcg/actuation 2 puff inhalation Q4H PRN 08/24/23 12/01/23 History aerosol inhaler shortness of breath or wheezing fluticasone propionate 50 1 spray intranasal DAILY 08/24/23 12/01/23 History mcg/actuation nasal spray,suspension (Allergy Relief (fluticasone)) furosemide 20 mg tablet (Lasix) 20 mg PO QAM PRN edema 08/24/23 12/01/23 History omeprazole 20 mg capsule,delayed 20 mg PO QDAY 12/01/23 12/01/23 History release PFSH Medical History Wears hearing aid Loss of hearing Wears partial dentures Wears glasses Cancer Anxiety Ambulates with cane Arthritis Restless legs Heartburn Gastric reflux Shortness of breath on exertion Sleep apnea Former smoker Leg cramps History of edema History of stress test Hx of malignant neoplasm of skin Depression Adopted DVT (deep venous thrombosis) Surgical History Hx of bilateral salpingectomy Total knee replacement status History of left knee replacement Status post right knee replacement Family History Unknown Adopted Social History household members: significant other and children housing: apartment current occupational status: retired current occupation: From [employer] Smoking Status: Former smoker alcohol intake: current alcohol intake frequency: holidays/special occasions only substance use type: does not use additional social history: HPI HPI HPI: Patient is a 62-year-old female here for EGD and colonoscopy. She has been having heartburn for the past 6 months which has been getting worse. She has been on a PPI and she says that that has taken care of the reflux but she is still having nausea with certain foods. She is also never had a colonoscopy. She denies blood in the stool. ROS General General: Yes weight change and fatigue; No appetite, colon cancer, breast cancer or weakness HEENT HEENT: No difficulty swallowing, eye injury, eye surgery, swollen glands or hoarseness Endo Endocrine: No thyroid disease, diabetes mellitus, thyroid cancer, Hair loss, heat intolerance or cold intolerance Skin Skin: Yes rash; No changing moles Musc Musculoskeletal: Yes arthritis; No back problems, rheumatoid arthritis, gout or joint pain Cardio Cardiovascular: No murmur, pacemaker, heart disease, atrial fibrillation, high blood pressure, heart attack, heart stent, palpitations, shortness of breat with exertion or chest pain Psych Psychiatric: No depression, anxiety or hearing voices Resp Respiratory: Yes shortness of breath, Yes sleep apnea, No cough, No COPD, No asthma, No emphysema and No wheezing Gastro Gastrointestinal: No abdominal pain, Yes nausea or vomiting, No diarrhea, Yes constipation, No blood in stool, Yes acid reflux, Yes hemorrhoids, No ulcers, No gallbladder problem and No black,tarry stools Aryan Hematologic: No blood thinners, No blood disorders, No bleeding, No anemia and Yes blood clots Additional Details: 2007 Neuro Neurologic: No system reviewed and no additional complaints, except as documented, No as per HPI, No abnormal gait, No abnormal hearing, No abnormal movements, No abnormal speech, No behavioral changes, No burning sensations, No confusion, No convulsions, No disequilibrium, No dizziness, No localized weakness, No frequent falls, No headache(s), No lack of coordination, No loss of vision, No memory loss, Yes numbness, No other visual disturbances, No radicular pain, No restless legs, No sensory deficit, No syncope, Yes tingling, No tremor(s), No weakness and No other Exam Const General: cooperative Nutritional Appearance: obese Orientation: alert and oriented x3 HENMT Head: normal to inspection Neck Neck: normal visual inspection and full ROM Chest Chest palpation & inspection: normal inspection of the chest Resp Effort & Inspection: normal respiratory effort Auscultation: clear to auscultation bilaterally Cardio Rate: regular rate Rhythm: regular rhythm GI Inspection: non-distended Palpation: soft and nontender Skin General: no rashes or lesions noted Neuro General: patient alert and patient oriented x3 Extrem General: full ROM Psych Appearance: grossly normal Mental Status: mental status grossly normal Assessment and Plan Assessment and Plan (1) Encounter for screening for malignant neoplasm of colon: Status: Acute (2) GERD (gastroesophageal reflux disease): Status: Acute Orders: Orders EGD Today Colonoscopy Today Plan The patient has GERD and nausea. I will do an EGD to evaluate for ulcer and esophagitis. Patient is also due for screening colonoscopy. I explained endoscopy in detail to the patient. I explained the risks including but not limited to stroke or heart attack with anesthesia, perforation of the GI tract, bleeding, infection. I explained that any of these could necessitate further emergency surgery. The patient understands and all questions were answered sufficiently. The patient wishes to proceed with procedure. Adalberto Bradley MD Pager: [facility] [address] [place] [address] [address] [place] [address] Office: I have examined the patient and the H&P has been reviewed. There are no clinical changes since date of exam.
--- NOTE | 2024-02-25 10:43 | OP.CCLET_ITS ---
02/25/2024 Chana Mckeon [address] [place] [address] Re : Upper GI endoscopy procedure for Eri Stubbs Dear Dr. Mckeon This procedure was performed on Sunday, February 25, 2024. My impressions and recommendations are as follows: Impressions : - Gastritis. Biopsied. - Normal esophagus. - Normal examined duodenum. Recommendations : - Discharge patient to home. - Resume previous diet. - Continue present medications. My findings are described in the full procedure note, which is enclosed. If I can be of further assistance, please feel free to contact me at Doctor phone number(s): , Work: . Sincerely, Adalberto Bradley MD 02/25/2024 10:43:06 AM This report has been signed electronically.
--- NOTE | 2024-02-25 10:43 | OP.EGD_ITS ---
Patient Name: Eri Stubbs Procedure Date: 02/25/2024 10:15 AM Date of : 1960 Age: 63 Procedure: Upper GI endoscopy Indications: Nausea Providers: Adalberto Bradley MD Referring MD: Chana Mckeon Medicines: Propofol per Anesthesia Patient Profile: This is a 63 year old female. Refer to note in patient chart for documentation of history and physical. Complications: No immediate complications. Estimated blood loss: Minimal. Procedure: Pre-Anesthesia Assessment: - Prior to the procedure, a History and Physical was performed, and patient medications and allergies were reviewed. The patient's tolerance of previous anesthesia was also reviewed. The risks and benefits of the procedure and the sedation options and risks were discussed with the patient. All questions were answered, and informed consent was obtained. Prior Anticoagulants: The patient has taken no anticoagulant or antiplatelet agents. After reviewing the risks and benefits, the patient was deemed in satisfactory condition to undergo the procedure. After obtaining informed consent, the endoscope was passed under direct vision. Throughout the procedure, the patient's blood pressure, pulse, and oxygen saturations were monitored continuously. The colonoscope was introduced through the mouth, and advanced to the fourth part of duodenum. The upper GI endoscopy was accomplished without difficulty. The patient tolerated the procedure well. Scope In: 10:29:32 AM Scope Out: 10:32:46 AM Total Procedure Duration Time 0 hours 3 minutes 14 seconds Findings: Localized mild inflammation was found on the greater curvature of the stomach. Biopsies were taken with a cold forceps for histology. The esophagus was normal. The examined duodenum was normal. Impression: - Gastritis. Biopsied. - Normal esophagus. - Normal examined duodenum. Recommendation: - Discharge patient to home. - Resume previous diet. - Continue present medications. Procedure Code(s): --- Professional --- 23157, Esophagogastroduodenoscopy, flexible, transoral; with biopsy, single or multiple Diagnosis Code(s): --- Professional --- K29.70, Gastritis, unspecified, without bleeding R11.0, Nausea CPT copyright 2021 [employer]. All rights reserved. The codes documented in this report are preliminary and upon power driven brush maker review may be revised to meet current compliance requirements. Adalberto Bradley MD 02/25/2024 10:43:06 AM This report has been signed electronically. Number of Addenda: 0 Note Initiated On: 02/25/2024 10:15 AM
--- NOTE | 2024-02-25 10:50 | PCM.POST.ANE ---
Anesthesia: Postop Eval I Current Vital Signs Temperature: 97.9 F Pulse Rate: 82 Blood Pressure: 144/79 Respiratory Rate: 16 Pulse Ox: 97 Oxygen Delivery Method: Room Air Assessment Airway patent: Yes Spontaneous unlabored respirations: Yes Mental status: Awake and Calm nausea: No Vomiting: No Anesthesia Complication: No Fluid Hydration Crystalloid volume administer (ml): 60 Total IV fluid infused: 60 Progress Note Anesthesia document: Postop Eval 1 completed: Yes
--- NOTE | 2024-02-25 10:57 | OP.CCLET_ITS ---
02/25/2024 Chana Mckeon [address] [place] [address] Re : Colonoscopy procedure for Eri Stubbs Dear Dr. Mckeon This procedure was performed on Sunday, February 25, 2024. My impressions and recommendations are as follows: Impressions : - The entire examined colon is normal on direct and retroflexion views. - No specimens collected. Recommendations : - Discharge patient to home. - Resume previous diet. - Continue present medications. - Repeat colonoscopy in 10 years for screening purposes. My findings are described in the full procedure note, which is enclosed. If I can be of further assistance, please feel free to contact me at Doctor phone number(s): , Work: . Sincerely, Adalberto Bradley MD 02/25/2024 10:56:48 AM This report has been signed electronically.
--- NOTE | 2024-02-25 10:57 | OP.COLON_ITS ---
Patient Name: Eri Stubbs Procedure Date: 02/25/2024 10:32 AM Date of : 1960 Age: 63 Procedure: Colonoscopy Indications: Screening for colorectal malignant neoplasm Providers: Adalberto Bradley MD Referring MD: Chana Mckeon Medicines: Propofol per Anesthesia Patient Profile: This is a 63 year old female. Refer to note in patient chart for documentation of history and physical. Last Colonoscopy: 10 years ago. Complications: No immediate complications. Procedure: Pre-Anesthesia Assessment: - Prior to the procedure, a History and Physical was performed, and patient medications and allergies were reviewed. The patient's tolerance of previous anesthesia was also reviewed. The risks and benefits of the procedure and the sedation options and risks were discussed with the patient. All questions were answered, and informed consent was obtained. Prior Anticoagulants: The patient has taken no anticoagulant or antiplatelet agents. After reviewing the risks and benefits, the patient was deemed in satisfactory condition to undergo the procedure. - Prior to the procedure, a History and Physical was performed, and patient medications and allergies were reviewed. The patient's tolerance of previous anesthesia was also reviewed. The risks and benefits of the procedure and the sedation options and risks were discussed with the patient. All questions were answered, and informed consent was obtained. Prior Anticoagulants: The patient has taken no anticoagulant or antiplatelet agents. After reviewing the risks and benefits, the patient was deemed in satisfactory condition to undergo the procedure. After I obtained informed consent, the scope was passed under direct vision. Throughout the procedure, the patient's blood pressure, pulse, and oxygen saturations were monitored continuously. The colonoscope was introduced through the anus and advanced to the cecum, identified by appendiceal orifice and ileocecal valve. The colonoscopy was performed without difficulty. The patient tolerated the procedure well. The quality of the bowel preparation was good. The ileocecal valve, appendiceal orifice, and rectum were photographed. Scope In: 10:34:11 AM Scope Withdrawal Time 0 hours 6 minutes 31 seconds Scope Out: 10:43:20 AM Total Procedure Duration Time 0 hours 9 minutes 9 seconds Findings: The entire examined colon appeared normal on direct and retroflexion views. Impression: - The entire examined colon is normal on direct and retroflexion views. - No specimens collected. Recommendation: - Discharge patient to home. - Resume previous diet. - Continue present medications. - Repeat colonoscopy in 10 years for screening purposes. Procedure Code(s): --- Professional --- 71385, Colonoscopy, flexible; diagnostic, including collection of specimen(s) by brushing or washing, when performed (separate procedure) Diagnosis Code(s): --- Professional --- Z12.11, Encounter for screening for malignant neoplasm of colon CPT copyright 2021 [employer]. All rights reserved. The codes documented in this report are preliminary and upon physician coder review may be revised to meet current compliance requirements. Adalberto Bradley MD 02/25/2024 10:56:48 AM This report has been signed electronically. Number of Addenda: 0 Note Initiated On: 02/25/2024 10:32 AM
--- NOTE | 2024-02-25 12:12 | PCM.POSTANE2 ---
Anesthesia Postop Eval I Sum Postop Eval Completion status Anesthesia document: Postop Eval 1 completed: Yes Anesthesia Postop Eval I Summary Anesthesia Postop Eval I Summary: Anesthesia Postop Eval I: Assessment Summary Airway patent Yes 02/25/24 10:51 [email or web address] Spontaneous unlabored Yes 02/25/24 10:51 [email or web address] respirations Mental status Awake,Calm 02/25/24 10:51 [email or web address] nausea No 02/25/24 10:51 [email or web address] Vomiting No 02/25/24 10:51 [email or web address] Anesthesia Postop Eval I: Fluid Summary Crystalloid volume administer 60 02/25/24 10:51 [email or web address] (ml) Colloids volume administered ( ml) Blood Product volume administered (ml) Total IV fluid infused 60 02/25/24 10:51 [email or web address] Anesthesia Postop Eval I: Summary Notes Anesthesia Complication No 02/25/24 10:51 [email or web address] Anesthesia Complication Comment: Post-operative progress note Anesthesia: Postop Eval II Evaluation Mental status: Awake Pain Level: 0 nausea: No Vomiting: No
== END 2024-02-25 11:25 | disposition home or self-care (01) ==
LOC: EN 09:17 → AC 09:17
PROVIDERS: PCP Family Medicine; Referring Provider Family Medicine; Visit Provider Surgery
PROC: 0DJD8ZZ Inspection of Lower Intestinal Tract, Via Natural or Artificial Opening Endoscopic (ICD-10-PCS; CPT 45378; principal; 2024-02-25 10:25)
DX: Z12.11 Encounter for screening for malignant neoplasm of colon (principal); K21.9 Gastro-esophageal reflux disease without esophagitis; K29.70 Gastritis, unspecified, without bleeding; Z87.891 Personal history of nicotine dependence; E66.9 Obesity, unspecified; Z79.899 Other long term (current) drug therapy
CPT/HCPCS: 43239; 45378; 88305; 88342; A4216; J2405

== ENCOUNTER → 2024-11-13 | Outpatient (CLI) | payer MEDICARE, MEDICAID, SELFPAY ==
[2024-11-16 14:08] LABS: HPV APTIMA, High Risk Negative (Negative)
== END | disposition home or self-care (01) ==
LOC: LABSPEC 01-16 14:51
PROVIDERS: PCP Family Medicine
DX: Z01.419 Encounter for gynecological examination (general) (routine) without abnormal findings (principal)
CPT/HCPCS: 87624; 88175; G0145

== ENCOUNTER → 2024-11-29 | Outpatient (CLI) | payer MEDICARE, MEDICAID, SELFPAY ==
--- NOTE | 2024-11-29 13:04 | RAD_ITS ---
PROCEDURE: NECK FOR SOFT TISSUE 11/29/2024 REASON FOR EXAM: CERVICAL RADICULOPATHY TECHNIQUE: Procedure Code: RADNE Modality: DX Procedure: NECK FOR SOFT TISSUE Two views COMPARISON: None FINDINGS: Bones: Bones are demineralized. No demonstrated fracture or suspicious osseous lesion. Intervertebral disc space narrowing noted throughout the cervical spine with sclerotic endplate changes. Alignment is anatomic though there is loss of the natural lordotic curvature likely positional or due to pain Prevertebral soft tissues are unremarkable Normal relationship between C7 and T1 RAD/Neck for Soft Tissue IMPRESSION: Multilevel degenerative changes, no acute findings Reading Location: [id number]
[2024-11-29 15:17] LABS: Hematocrit 40.0 % (37-47); Hemoglobin 13.3 g/dL (12.0-15.0); Immature Granulocytes Count 0.020 X10^3/uL (0.0-0.0); Mean Corp Hgb Conc 33.3 g/dL (32-36); Mean Corpuscular Volume 84.0 fL (81-99); Mean Platelet Vol. 11.0 fl (6.2-12.0); NRBC Flagged by Analyzer 0 % (0-5); Platelet Count 179 K/mm3 (150-450); RBC Distribution Width CV 13.9 % (11.6-14.6); RBC Distribution Width SD 42.7 fl (35.1-43.9); Red Blood Count 4.76 M/mm3 (4.2-5.4); White Blood Count 5.4 K/mm3 (4.4-11.0)
[2024-11-29 16:24] LABS: AST(SGOT) 18 U/L (<=31); Alanine Aminotransfer ALT/SGPT 18 U/L (<=34); Albumin, Serum 4.2 g/dL (3.4-4.8); Alkaline Phosphatase 119 U/L (35-104); Anion Gap 14 (5-15); BUN 14 mg/dL (4-19); BUN/Creat Ratio 17.1 RATIO (10-20); Calcium,Total 9.3 mg/dL (7.6-11.0); Carbon Dioxide 22.6 mmol/L (21.0-32.0); Chloride 102 mmol/L (98-108); Cholesterol 208 mg/dL (<=200); Globulin 2.7 g/dL (2.2-4.2); Glucose 107 mg/dL (70-99); Low Density Lipoprotein Calc. 118 mg/dL; Potassium 4.1 mmol/L (3.3-5.1); Triglycerides 115 mg/dL; Very Low Density Lipoprotein 23 mg/dL (5-40); Vitamin B12 418 pg/mL (180-914); Vitamin D,25 Hydroxy 8.5 ng/mL (30-100); cholesterol:hdl ratio screen 3.11
== END | disposition home or self-care (01) ==
LOC: MTLAB 13:04
PROVIDERS: PCP Family Medicine; Referring Provider Family Medicine; Visit Provider Family Medicine
DX: R73.09 Other abnormal glucose (principal); E66.01 Morbid (severe) obesity due to excess calories; R53.83 Other fatigue; M54.12 Radiculopathy, cervical region; E55.9 Vitamin D deficiency, unspecified
CPT/HCPCS: 36415; 70360; 80053; 80061; 82306; 82607; 83036; 84439; 84443; 85025

== ENCOUNTER → 2025-01-05 | Outpatient (CLI) | payer MEDICARE, MEDICAID, SELFPAY ==
--- NOTE | 2025-01-05 13:43 | BI_ITS ---
EXAM: BI/SCRN MAMM (CAD)W/RUPESH BILAT
--- NOTE | 2025-01-05 14:10 | CT_ITS ---
PROCEDURE: CT/Low Dose CT Lung Screening
== END | disposition home or self-care (01) ==
LOC: CT 13:40
PROVIDERS: PCP Family Medicine; Referring Provider Family Medicine; Visit Provider Family Medicine
DX: Z12.31 Encounter for screening mammogram for malignant neoplasm of breast (principal); Z87.891 Personal history of nicotine dependence
CPT/HCPCS: 71271; 77063; 77067